=== PATIENT | male | born 1975 | race African-American/Black ===

== ENCOUNTER 2020-08-27 00:02 | Inpatient (IN) | payer OTHER ==
[2020-08-27] MEDS ORDERED: ASPIRIN 81MG TAB.CHEW ONE ×2 (00:19→09:58)
[2020-08-27] MEDS ORDERED: NITROGLYCERIN 0.4 MG SL TAB SL ONE ×2 (00:20→12:23)
[2020-08-27] MEDS ORDERED: ONDANSETRON HCL 4 MG/2 ML VIAL ONE (00:20)
[2020-08-27] MEDS ORDERED: NITROGLYCERIN 1GM/1 INCH PACKET TD ONE ×2 (00:20→12:34)
[2020-08-27] MEDS ORDERED: MORPHINE SULFATE 2 MG/ML 1ML SYG ONE ×2 (00:20→11:12)
[2020-08-27] MEDS ORDERED: ENOXAPARIN SODIUM 100 MG/1 ML SQ ONE (00:25)
[2020-08-27 00:41] LABS: INR 0.87 (0.85-1.15); PROTHROMBIN TIME 9.4 SEC (9.6-11.6)
[2020-08-27 00:42] LABS: BASOPHILS % (AUTO) 0.3 % (0.0-5.0); EOSINOPHILS % (AUTO) 0.1 % (0.0-8.0); HEMATOCRIT 36.5 % (42-54); LYMPHOCYTES % (AUTO) 24.9 % (21.0-51.0); MEAN CORPUSCULAR HEMOGLOBIN 26.3 pg (27.0-33.0); MEAN CORPUSCULAR HGB CONC 31.5 g/dL (32.0-36.0); MEAN CORPUSCULAR VOLUME 83.5 fL (79-99); PLATELET COUNT (AUTO) 351 K/uL (130-400); RED BLOOD CELL COUNT(AUTO) 4.37 MIL/uL (4.50-6.20); RED CELL DISTRIBUTION WIDTH 12.8 % (11.0-15.5); WHITE BLOOD COUNT (AUTO) 11.1 K/uL (4.8-10.8)
[2020-08-27 00:46] LABS: CREATININE 1.3 mg/dL (0.5-1.5); POTASSIUM 3.6 mmol/L (3.5-5.1)
[2020-08-27 00:51] LABS: ALBUMIN 3.5 g/dL (3.5-5.0); BILIRUBIN,TOTAL 0.1 mg/dL (0.2-1.0); TOTAL PROTEIN, SERUM 7.7 g/dL (6.0-8.3)
[2020-08-27 01:09] LABS: B-TYPE NATRIURETIC PEPTIDE 6 pg/mL (0-100)
[2020-08-27 02:29] LABS: APPEARANCE,URINE Clear (CLEAR); BILIRUBIN,URINE Negative (NEGATIVE); COLOR,URINE Yellow (YELLOW); GLUCOSE, URINE (UA) Negative (NEGATIVE); KETONES,URINE Negative (NEGATIVE); LEUKOCYTE ESTERASE ,URINE Negative (NEGATIVE); NITRATE,URINE Negative (NEGATIVE); OCCULT BLOOD,URINE Negative (NEGATIVE); PH,URINE 7.5 (5.0-8.0); PROTEIN,URINE Negative (NEGATIVE); UROBILINOGEN,URINE 0.2 mg/dL (0.2-1.0)
[2020-08-27] MEDS ORDERED: NITROGLYCERIN 0.4 MG SL TAB SL PRN ×2 (07:30→12:15)
[2020-08-27] MEDS ORDERED: GUAIFENESIN-DM 200/20 MG 10 ML PO PRN (07:30)
[2020-08-27] MEDS ORDERED: ZOLPIDEM TARTRATE 5 MG TAB PO PRN (07:30)
[2020-08-27] MEDS ORDERED: ONDANSETRON HCL 4 MG/2 ML VIAL IV PRN (07:30)
[2020-08-27] MEDS: CEFTRIAXONE SODIUM 1 GM IV SCH (07:30)
[2020-08-27] MEDS ORDERED: SODIUM CHLORIDE 0.9% 1000ML 1,000 ML IV SCH ×2 (07:30→17:00)
[2020-08-27] MEDS ORDERED: ACETAMINOPHEN 325 MG TAB PO PRN ×2 (07:30)
[2020-08-27] MEDS: ASPIRIN 81MG TAB.CHEW PO SCH (09:00)
[2020-08-27] MEDS: ENOXAPARIN SODIUM 40 MG/0.4 ML SYRINGE SQ SCH (09:00)
[2020-08-27] MEDS ORDERED: METOPROLOL TARTRATE 25 MG TAB PO SCH (09:00)
[2020-08-27] MEDS: FAMOTIDINE/PF 20 MG/2 ML VIAL IV SCH (09:00)
[2020-08-27 09:15] LABS: BASOPHILS % (AUTO) 0.3 % (0.0-5.0); EOSINOPHILS % (AUTO) 0.2 % (0.0-8.0); HEMATOCRIT 33.1 % (42-54); LYMPHOCYTES % (AUTO) 18.7 % (21.0-51.0); MEAN CORPUSCULAR HEMOGLOBIN 26.8 pg (27.0-33.0); MEAN CORPUSCULAR VOLUME 83.6 fL (79-99); MONOCYTES % (AUTO) 7.2 % (3.0-13.0); NEUTROPHILS % (AUTO) 72.1 % (40.0-77.0); PLATELET COUNT (AUTO) 328 K/uL (130-400); RED BLOOD CELL COUNT(AUTO) 3.96 MIL/uL (4.50-6.20); RED CELL DISTRIBUTION WIDTH 12.8 % (11.0-15.5); WHITE BLOOD COUNT (AUTO) 10.2 K/uL (4.8-10.8)
[2020-08-27 09:24] LABS: HEMOGLOBIN A1C 6.2 % (4.0-6.0)
[2020-08-27 09:28] LABS: ALBUMIN 3.4 g/dL (3.5-5.0); BILIRUBIN,TOTAL 0.3 mg/dL (0.2-1.0); CREATININE 1.2 mg/dL (0.5-1.5); TOTAL PROTEIN, SERUM 7.2 g/dL (6.0-8.3)
[2020-08-27 09:28] LABS: AMPHET/METH SCREEN,URINE NEGATIVE (NEGATIVE); BARBITURATE SCREEN, URINE NEGATIVE (NEGATIVE); BENZODIAZEPINES SCREEN,URINE NEGATIVE (NEGATIVE); CANNABINOID SCREEN,URINE NEGATIVE (NEGATIVE); COCAINE SCREEN,URINE NEGATIVE (NEGATIVE); OPIATE SCREEN,URINE NEGATIVE (NEGATIVE); PHENCYCLIDINE SCREEN,URINE NEGATIVE (NEGATIVE)
[2020-08-27] MEDS ORDERED: FAMOTIDINE 20MG TAB 20 MG TAB ONE (09:58)
[2020-08-27] MEDS ORDERED: SODIUM CHLORIDE 0.9% 1000ML 1,000 ML IV ONE (09:59)
[2020-08-27] MEDS ORDERED: ENOXAPARIN SODIUM 40 MG/0.4 ML SYRINGE SQ ONE (09:59)
[2020-08-27] MEDS ORDERED: CEFTRIAXONE SODIUM 1 GM ONE (09:59)
[2020-08-27] MEDS ORDERED: SODIUM CHLORIDE 0.9% 100 ML IV ONE (10:00)
[2020-08-27] MEDS: INSULIN HUMULIN R 100 UNIT/ML 3ML SQ SCH ×3 (11:30→20:46)
[2020-08-27] MEDS ORDERED: NITROGLYCERIN 1GM/1 INCH PACKET TD SCH (12:15)
[2020-08-27] MEDS ORDERED: ACETAMINOPHEN 325 MG TAB ONE (13:59)
[2020-08-27] MEDS ORDERED: BIVALIRUDIN 250 MG/VIAL IV ONE (16:19)
[2020-08-27] MEDS ORDERED: FENTANYL CITRATE PF 50 MCG/1 ML 2ML VIAL ONE (16:19)
[2020-08-27] MEDS ORDERED: HEPARIN SODIUM 1000UNIT/ML 10ML VIAL ONE (16:19)
[2020-08-27] MEDS ORDERED: LIDOCAINE HCL 2% 20ML ONE (16:19)
[2020-08-27] MEDS ORDERED: MIDAZOLAM HCL 1 MG/ML 2ML VIAL ONE (16:19)
[2020-08-27] MEDS ORDERED: NITROGLYCERIN 2 MG/VIAL VIAL IV ONE (16:19)
[2020-08-27] MEDS ORDERED: IOHEXOL-350 50ML VIAL IV ONE (16:20)
[2020-08-27] MEDS ORDERED: IOHEXOL 350 MG/ML 100ML INFUS..BTL IV ONE (16:20)
[2020-08-27 17:25] VITALS: BP 117/82
[2020-08-27] MEDS ORDERED: LORA10TA7 PO (17:57)
[2020-08-27] MEDS ORDERED: METO50TA18 PO (17:57)
[2020-08-27] MEDS ORDERED: MELA3CAP2 PO (17:57)
[2020-08-27] MEDS ORDERED: LEVE10006 PO (17:57)
[2020-08-27] MEDS ORDERED: LISI40TA4 PO (17:57)
[2020-08-27] MEDS ORDERED: GABA600T10 PO (17:57)
[2020-08-27] MEDS ORDERED: DULO30CA52 PO (17:57)
[2020-08-27] MEDS ORDERED: VITA1CAP PO (17:57)
[2020-08-27] MEDS ORDERED: SIMV40TA59 PO (17:57)
[2020-08-27] MEDS ORDERED: FLUT16H NS (17:57)
[2020-08-27] MEDS ORDERED: METF-446 PO (17:57)
--- NOTE | 2020-08-27 18:06 | NUR ---
POST PROCEDURE RECEIVED PT FROM WAREHOUSE DRIVER, IN FLAT POSITION, A&OX3, CALM COOPERATIVE AND DOES NOT APPEAR TO BE IN ANY DISTRESS NOR ANY NEURO DEFICITS PRESENT. PT DENIES PAIN, SOB, NAUSEA. RT GROIN SOFT NONTENDER WITH NO OOZING OR HEMATOMA PRESENT. DP/PT PULSES PALPABLE. CALL LIGHT WITHIN REACH, PT ON BEDREST FOR 2 HOURS, CALL LIGHT WITHIN REACH
[2020-08-27 19:11] VITALS: BP 117/68
[2020-08-27 20:11] VITALS: BP 137/84
[2020-08-27] MEDS: LEVETIRACETAM 500 MG TABLET PO SCH (20:13)
[2020-08-27] MEDS: SIMVASTATIN 20 MG TABLET PO SCH (20:20)
[2020-08-27] MEDS: METOPROLOL TARTRATE 50 MG TAB PO SCH (20:23)
[2020-08-27 21:11] VITALS: BP 111/54
[2020-08-27 22:26] VITALS: BP 135/96
[2020-08-27] MEDS: MORPHINE SULFATE 2 MG/ML 1ML SYG IV PRN (22:40)
[2020-08-27 23:22] VITALS: BP 137/85
[2020-08-28 03:56] VITALS: BP 140/85
[2020-08-28 06:18] LABS: BASOPHILS % (AUTO) 0.4 % (0.0-5.0); EOSINOPHILS % (AUTO) 0.2 % (0.0-8.0); HEMATOCRIT 32.8 % (42-54); MEAN CORPUSCULAR HEMOGLOBIN 26.3 pg (27.0-33.0); MEAN CORPUSCULAR HGB CONC 31.7 g/dL (32.0-36.0); MEAN CORPUSCULAR VOLUME 82.8 fL (79-99); MONOCYTES % (AUTO) 7.6 % (3.0-13.0); NEUTROPHILS % (AUTO) 66.8 % (40.0-77.0); PLATELET COUNT (AUTO) 303 K/uL (130-400); RED BLOOD CELL COUNT(AUTO) 3.96 MIL/uL (4.50-6.20); RED CELL DISTRIBUTION WIDTH 12.9 % (11.0-15.5); WHITE BLOOD COUNT (AUTO) 8.4 K/uL (4.8-10.8)
[2020-08-28 06:34] LABS: CREATININE 1.2 mg/dL (0.5-1.5); POTASSIUM 4.4 mmol/L (3.5-5.1)
[2020-08-28] MEDS: CEFTRIAXONE SODIUM 1 GM IV SCH (06:35)
[2020-08-28] MEDS: INSULIN HUMULIN R 100 UNIT/ML 3ML SQ SCH ×4 (07:30→20:35)
[2020-08-28 08:43] VITALS: BP 127/79
[2020-08-28] MEDS: FAMOTIDINE/PF 20 MG/2 ML VIAL IV SCH (09:14)
[2020-08-28] MEDS: ASPIRIN 81MG TAB.CHEW PO SCH (09:14)
[2020-08-28] MEDS: METOPROLOL TARTRATE 50 MG TAB PO SCH ×2 (09:14→20:37)
[2020-08-28] MEDS: LEVETIRACETAM 500 MG TABLET PO SCH (09:14)
[2020-08-28] MEDS: ENOXAPARIN SODIUM 40 MG/0.4 ML SYRINGE SQ SCH (09:15)
[2020-08-28 11:28] VITALS: BP 130/81
[2020-08-28] MEDS: MORPHINE SULFATE 2 MG/ML 1ML SYG IV PRN ×3 (11:35→23:19)
[2020-08-28] MEDS ORDERED: IOHEXOL-350 50ML VIAL IV ONE (12:53)
[2020-08-28] MEDS ORDERED: IOHEXOL-350 75 ML VIAL IV ONE (12:54)
--- NOTE | 2020-08-28 16:05 | NUR ---
MET WITH PATIENT AT BEDSIDE. LIVES WITH SPOUSE WHO DOES ALL THE DRIVING. HAS NO DME HAS TROUBLE WITH STAIRS AND HAS FALLEN DOWN HIS STAIRS IN THE HOME A FEW TIMES SECOND TO SEIZURES. HAS BEEN DISABLED SECOND TO SEIZURES ABOUT 4 YEARS, NOW NOT ABLE TO DO MUCH EXCEPT PLAYS VIDEO GAMES AND HELPS HIS SONS WITH THEIR HOME WORK. FOLLOW WITH DR. GOMEZ AT [facility], NO DC NEEDS EXPRESSED. Addendum: 08/28/20 at 1910 by TONIA SLOAN RN CM Amended: Links added.
[2020-08-28 16:30] VITALS: BP 129/75
[2020-08-28 19:00] VITALS: BP 135/78
[2020-08-28] MEDS: SIMVASTATIN 20 MG TABLET PO SCH (20:37)
[2020-08-28] MEDS ORDERED: LEVETIRACETAM 500 MG TABLET PO SCH (21:00)
[2020-08-28 23:58] VITALS: BP 129/71
[2020-08-29 04:00] VITALS: BP 124/67
[2020-08-29] MEDS: CEFTRIAXONE SODIUM 1 GM IV SCH (06:18)
[2020-08-29] MEDS: INSULIN HUMULIN R 100 UNIT/ML 3ML SQ SCH ×3 (06:22→16:30)
[2020-08-29 08:07] VITALS: BP 139/87
[2020-08-29] MEDS: FAMOTIDINE/PF 20 MG/2 ML VIAL IV SCH (08:29)
[2020-08-29] MEDS: ENOXAPARIN SODIUM 40 MG/0.4 ML SYRINGE SQ SCH (08:29)
[2020-08-29] MEDS: METOPROLOL TARTRATE 50 MG TAB PO SCH (08:30)
[2020-08-29] MEDS: ASPIRIN 81MG TAB.CHEW PO SCH (08:30)
[2020-08-29] MEDS ORDERED: LEVETIRACETAM 500 MG TABLET PO SCH (09:00)
[2020-08-29 10:55] LABS: HEMATOCRIT 34.4 % (42-54); MEAN CORPUSCULAR HEMOGLOBIN 26.3 pg (27.0-33.0); MEAN CORPUSCULAR HGB CONC 31.7 g/dL (32.0-36.0); MEAN CORPUSCULAR VOLUME 82.9 fL (79-99); RED BLOOD CELL COUNT(AUTO) 4.15 MIL/uL (4.50-6.20); RED CELL DISTRIBUTION WIDTH 13.1 % (11.0-15.5); WHITE BLOOD COUNT (AUTO) 8.7 K/uL (4.8-10.8)
[2020-08-29 11:15] LABS: CREATININE 1.2 mg/dL (0.5-1.5); POTASSIUM 3.9 mmol/L (3.5-5.1)
[2020-08-29] MEDS: MORPHINE SULFATE 2 MG/ML 1ML SYG IV PRN (11:17)
[2020-08-29 12:10] VITALS: BP 116/74
[2020-08-29 16:50] VITALS: BP 128/83
--- NOTE | 2020-08-29 18:00 | NUR ---
PT AWAKE, ALERT, AND ORIENTED. DC HOME INSTRUCTIONS GIVEN TO PT, ACKNOWLEDGED ALL INFORMATION, ALL QUESTIONS ANSWERED. REMINDED PT TO FOLLOW UP WITH PCP AND NEUROLOGIST AT [facility] AND DR Ramya MONTERO AT [facility] MADE AWARE OF ALL MEDICATION CHANGES; MADE AWARE TO RETURN TO ER OR DIAL 911 IN CASE OF EMERGENCY. PT ACKNOWLEDGED ALL INFORMATION
== END 2020-08-29 18:19 | disposition home or self-care (01) | DRG 287 ==
LOC: EDH 00:02 → EDHIP 07:16 → 4CH 17:15
PROVIDERS: ADMIT Hospitalist; ATTEND Hospitalist
PROC: 4A023N7 Measurement of Cardiac Sampling and Pressure, Left Heart, Percutaneous Approach (ICD-10-PCS; principal; 2020-08-27)
PROC: B2111ZZ Fluoroscopy of Multiple Coronary Arteries using Low Osmolar Contrast (ICD-10-PCS; 2020-08-27)
PROC: B2151ZZ Fluoroscopy of Left Heart using Low Osmolar Contrast (ICD-10-PCS; 2020-08-27)
DX: I20.0 Unstable angina (principal); I10 Essential (primary) hypertension; E11.9 Type 2 diabetes mellitus without complications; F32.9 Major depressive disorder, single episode, unspecified; F41.9 Anxiety disorder, unspecified; E78.5 Hyperlipidemia, unspecified; F43.10 Post-traumatic stress disorder, unspecified; G40.909 Epilepsy, unspecified, not intractable, without status epilepticus; E66.9 Obesity, unspecified; F40.240 Claustrophobia; Z87.891 Personal history of nicotine dependence; Z79.84 Long term (current) use of oral hypoglycemic drugs
CPT/HCPCS: 36415; 70470; 71045; 71275; 80048; 80053; 80061; 80177; 80305; 81003; 82550; 82948; 83036; 83880; 84484; 85025; 85027; 85378; 85610; 85730; 93005; 93306; 93356; 93458; 99156; 99157; C1760; C1894; G0378; J0583; J0696; J1644; J1650; J2250; J2405; J3010; J3490; J7030; Q9967

== ENCOUNTER 2020-09-07 13:14 | Emergency (ER) | payer OTHER ==
[~2020-09-07 13:14] MED LIST: DULO30CA52 PO; FLUT16H NS; GABA600T10 PO; LEVE10006 PO; LISI40TA4 PO; LORA10TA7 PO; MELA3CAP2 PO; METF-446 PO; METO50TA18 PO; SIMV40TA59 PO; VITA1CAP PO
[2020-09-07] MEDS ORDERED: ASPIRIN 325 MG TABLET ONE (13:20)
[2020-09-07 13:35] LABS: BASOPHILS % (AUTO) 0.1 % (0.0-5.0); EOSINOPHILS % (AUTO) 0.1 % (0.0-8.0); HEMATOCRIT 35.9 % (42-54); MEAN CORPUSCULAR HEMOGLOBIN 26.5 pg (27.0-33.0); MEAN CORPUSCULAR HGB CONC 31.5 g/dL (32.0-36.0); MEAN CORPUSCULAR VOLUME 84.3 fL (79-99); MONOCYTES % (AUTO) 5.9 % (3.0-13.0); NEUTROPHILS % (AUTO) 73.2 % (40.0-77.0); PLATELET COUNT (AUTO) 322 K/uL (130-400); RED BLOOD CELL COUNT(AUTO) 4.26 MIL/uL (4.50-6.20); RED CELL DISTRIBUTION WIDTH 13.5 % (11.0-15.5); WHITE BLOOD COUNT (AUTO) 9.8 K/uL (4.8-10.8)
[2020-09-07 13:48] LABS: ALBUMIN 3.3 g/dL (3.5-5.0); BILIRUBIN,TOTAL 0.2 mg/dL (0.2-1.0); CREATININE 1.3 mg/dL (0.5-1.5); POTASSIUM 4.2 mmol/L (3.5-5.1); TOTAL PROTEIN, SERUM 7.2 g/dL (6.0-8.3)
[2020-09-07 13:50] LABS: INR 0.9 (0.85-1.15); PROTHROMBIN TIME 9.8 SEC (9.6-11.6)
[2020-09-07] MEDS ORDERED: METOPROLOL TARTRATE 1 MG/ML 5ML VIAL IV ONE (14:11)
[2020-09-07 15:03] LABS: APPEARANCE,URINE Clear (CLEAR); BILIRUBIN,URINE Small (NEGATIVE); COLOR,URINE Dark Yellow (YELLOW); GLUCOSE, URINE (UA) Negative (NEGATIVE); KETONES,URINE Trace mg/dL (NEGATIVE); LEUKOCYTE ESTERASE ,URINE Negative (NEGATIVE); NITRATE,URINE Negative (NEGATIVE); OCCULT BLOOD,URINE Negative (NEGATIVE); PH,URINE 5.5 (5.0-8.0); PROTEIN,URINE Trace mg/dL (NEGATIVE)
[2020-09-07 15:13] LABS: BACTERIA,URINE Few /HPF (None Seen); COARSE GRANULAR CASTS,URINE 0-2 /LPF (None Seen); RBC,URINE 0-1 /HPF (0-1); SQUAMOUS EPITHELIAL CELL,UR Few /HPF (0-2); WBC,URINE 0-1 /HPF (0-1)
[2020-09-07] MEDS ORDERED: LIDOCAINE 5% TOPICAL PATCH TP ONE (15:22)
== END 2020-09-07 15:57 | disposition home or self-care (01) ==
LOC: EDH 13:14
DX: R07.89 Other chest pain (principal); R06.02 Shortness of breath; Z20.828 Contact with and (suspected) exposure to other viral communicable diseases; E11.9 Type 2 diabetes mellitus without complications; E78.5 Hyperlipidemia, unspecified; I10 Essential (primary) hypertension; F41.9 Anxiety disorder, unspecified; F43.10 Post-traumatic stress disorder, unspecified; Z87.891 Personal history of nicotine dependence; Z79.899 Other long term (current) drug therapy
CPT/HCPCS: 36415; 71045; 80053; 81001; 82550; 84484; 85025; 85610; 85730; 87426; 93005; 96374; 99285; J3490; U0003

== ENCOUNTER 2020-09-16 18:40 | Inpatient (IN) | payer OTHER ==
[~2020-09-16] VITALS: Ht 175.3 cm; Wt 119.3 kg
[2020-09-16] MEDS ORDERED: LIDOCAINE HCL 2% VISCOUS 15 ML UDCUP ONE (19:18)
[2020-09-16] MEDS ORDERED: ONDANSETRON HCL 4 MG/2 ML VIAL ONE (19:19)
[2020-09-16] MEDS ORDERED: FAMOTIDINE/PF 20 MG/2 ML VIAL IV ONE (19:19)
[2020-09-16] MEDS ORDERED: MAG HYDROX/AL HYDROX/SIMETH ES 30 ML SUSP UDCUP ONE (19:19)
[2020-09-16] MEDS ORDERED: KETOROLAC TROMETHAMINE 30MG/ML ONE (19:19)
[2020-09-16 19:20] LABS: BASOPHILS % (AUTO) 0.2 % (0.0-5.0); EOSINOPHILS % (AUTO) 0.8 % (0.0-8.0); LYMPHOCYTES % (AUTO) 22.2 % (21.0-51.0); MEAN CORPUSCULAR HEMOGLOBIN 26.5 pg (27.0-33.0); MEAN CORPUSCULAR HGB CONC 30.9 g/dL (32.0-36.0); MEAN CORPUSCULAR VOLUME 85.8 fL (79-99); MONOCYTES % (AUTO) 7.9 % (3.0-13.0); NEUTROPHILS % (AUTO) 67.2 % (40.0-77.0); PLATELET COUNT (AUTO) 324 K/uL (130-400); RED BLOOD CELL COUNT(AUTO) 4.08 MIL/uL (4.50-6.20); RED CELL DISTRIBUTION WIDTH 13.6 % (11.0-15.5); WHITE BLOOD COUNT (AUTO) 6.6 K/uL (4.8-10.8)
[2020-09-16 19:29] LABS: CREATININE 1.1 mg/dL (0.5-1.5); POTASSIUM 4.2 mmol/L (3.5-5.1)
[2020-09-16 19:34] LABS: ALBUMIN 3.2 g/dL (3.5-5.0); BILIRUBIN,TOTAL 0.2 mg/dL (0.2-1.0); TOTAL PROTEIN, SERUM 6.9 g/dL (6.0-8.3)
[2020-09-16 20:24] LABS: APPEARANCE,URINE Clear (CLEAR); BILIRUBIN,URINE Negative (NEGATIVE); COLOR,URINE Yellow (YELLOW); GLUCOSE, URINE (UA) Negative (NEGATIVE); KETONES,URINE Negative (NEGATIVE); LEUKOCYTE ESTERASE ,URINE Negative (NEGATIVE); NITRATE,URINE Negative (NEGATIVE); OCCULT BLOOD,URINE Negative (NEGATIVE); PROTEIN,URINE Negative (NEGATIVE)
[2020-09-16] MEDS ORDERED: HYDROMORPHONE HCL 0.5 MG/0.5 ML ML ONE ×2 (20:28→21:57)
[2020-09-16] MEDS ORDERED: IOHEXOL-350 75 ML VIAL IV ONE (21:08)
[2020-09-16] MEDS ORDERED: METOPROLOL TARTRATE 25 MG TAB ONE (23:11)
[2020-09-16] MEDS ORDERED: ATORVASTATIN CALCIUM 20 MG TABLET ONE (23:11)
[2020-09-17] MEDS ORDERED: NITROGLYCERIN 0.4 MG SL TAB SL PRN
[2020-09-17] MEDS ORDERED: GUAIFENESIN-DM 200/20 MG 10 ML PO PRN
[2020-09-17] MEDS ORDERED: MAG HYDROX/AL HYDROX/SIMETH ES 30 ML SUSP UDCUP PO PRN
[2020-09-17] MEDS ORDERED: DIPHENHYDRAMINE HCL 25 MG CAPSULE PO PRN
[2020-09-17] MEDS ORDERED: ACETAMINOPHEN 325 MG TAB PO PRN
[2020-09-17] MEDS ORDERED: ONDANSETRON HCL 4 MG/2 ML VIAL IV PRN
[2020-09-17] MEDS ORDERED: HYDRALAZINE HCL 20 MG/ML VIAL IV PRN
[2020-09-17] MEDS ORDERED: ACETAMINOPHEN-CODEINE 300/30MG TAB PO PRN
[2020-09-17] MEDS ORDERED: LACTULOSE 20 GM/30 ML UDCUP PO PRN
[2020-09-17] MEDS ORDERED: ZOLPIDEM TARTRATE 5 MG TAB PO PRN
[2020-09-17 00:48] LABS: CREATINE KINASE, TOTAL 59 U/L (21-232); MYOGLOBIN 31 ng/mL (10-92); TROPONIN I < 0.04 ng/mL (0.00-0.06)
[2020-09-17] MEDS ORDERED: ACETAMINOPHEN-CODEINE 300/30MG TAB ONE (03:02)
--- NOTE | 2020-09-17 03:20 | NUR ---
Admission note: Admitted to floor via stretcher from ER. Fully awake and responsive. Physical assessment done. ( See CPOE flow chart for full assessment) VS checked and recorded. Abdominal pain still present but tolerable at this time. "Pain never goes away" as reported by pt. Home meds at bedside and were listed. Has PIV line to LAC #20 gauge , SL - patent and intact. Hooked to Telemetry at bedside NSR. Plan of care initiated. Admission protocols done. Seizure precautionary measures done. Respiratory distress not noted. Needs attended and cared for.
[2020-09-17 04:21] VITALS: BP 145/79
[2020-09-17] MEDS ORDERED: AEC81 PO (04:26)
[2020-09-17] MEDS ORDERED: LEVE10006 PO ×2 (04:26)
[2020-09-17] MEDS ORDERED: CYCL10TA7 PO (04:26)
[2020-09-17] MEDS ORDERED: QUET200T PO (04:26)
[2020-09-17] MEDS ORDERED: GABA300C PO (04:26)
[2020-09-17] MEDS ORDERED: METO25TA6 PO (04:26)
[2020-09-17] MEDS ORDERED: MELO-108 PO (04:26)
[2020-09-17] MEDS ORDERED: LISI40TA4 PO (04:26)
[2020-09-17] MEDS ORDERED: LEVE250T2 PO (04:27)
[2020-09-17 05:12] LABS: BASOPHILS % (AUTO) 0.3 % (0.0-5.0); HEMATOCRIT 32.2 % (42-54); LYMPHOCYTES % (AUTO) 26.2 % (21.0-51.0); MEAN CORPUSCULAR HEMOGLOBIN 26.3 pg (27.0-33.0); MEAN CORPUSCULAR HGB CONC 31.1 g/dL (32.0-36.0); MEAN CORPUSCULAR VOLUME 84.7 fL (79-99); MONOCYTES % (AUTO) 9.2 % (3.0-13.0); NEUTROPHILS % (AUTO) 62.1 % (40.0-77.0); PLATELET COUNT (AUTO) 285 K/uL (130-400); RED CELL DISTRIBUTION WIDTH 13.9 % (11.0-15.5)
[2020-09-17 05:21] LABS: CREATININE 1.1 mg/dL (0.5-1.5); POTASSIUM 4.2 mmol/L (3.5-5.1)
[2020-09-17 06:44] LABS: CREATINE KINASE, TOTAL 58 U/L (21-232); MYOGLOBIN 45 ng/mL (10-92); TROPONIN I < 0.04 ng/mL (0.00-0.06)
[2020-09-17 06:52] LABS: HEMOGLOBIN A1C 6.9 % (4.0-6.0)
[2020-09-17 08:00] VITALS: BP 137/87
[2020-09-17] MEDS: PHARMACY COMMUNICATION MISC SCH ×2 (08:45→15:05)
[2020-09-17] MEDS: LEVETIRACETAM 500 MG TABLET PO SCH ×2 (09:00→21:24)
[2020-09-17] MEDS: FAMOTIDINE 20MG TAB 20 MG TAB PO SCH ×2 (09:00→21:25)
[2020-09-17] MEDS: METOPROLOL TARTRATE 25 MG TAB PO SCH ×2 (09:00→21:26)
[2020-09-17] MEDS: GABAPENTIN 300 MG CAPSULE PO SCH ×2 (09:01→21:25)
[2020-09-17] MEDS: VITAMIN B COMPLEX 1 CAPSULE PO SCH (09:01)
[2020-09-17] MEDS: ENOXAPARIN SODIUM 30 MG/0.3 ML SQ SCH (09:02)
[2020-09-17 11:00] VITALS: BP 142/87
--- NOTE | 2020-09-17 12:53 | NUR ---
NO ANSWER IN RESPONSE TO CALL TO PT'S AND SPOUSES PHONE. KNOWN TO THIS INSTRUCTIONAL DEVELOPER REVIEWED NOTES FROM LAST ADMISSION "" MET WITH PATIENT AT BEDSIDE. LIVES WITH SPOUSE WHO DOES ALL THE DRIVING. HAS NO DME HAS TROUBLE WITH STAIRS AND HAS FALLEN DOWN HIS STAIRS IN THE HOME A FEW TIMES SECOND TO SEIZURES. HAS BEEN DISABLED SECOND TO SEIZURES ABOUT 4 YEARS, NOW NOT ABLE TO DO MUCH EXCEPT PLAYS VIDEO GAMES AND HELPS HIS SONS WITH THEIR HOME WORK. FOLLOW WITH DR. GOMEZ AT [facility], NO DC NEEDS EXPRESSED."" WILL FOLLOW UP FOR ANY CHANGESTO THIS INFORMATION. Addendum: 09/17/20 at 1255 by TONIA SLOAN RN Amended: Links added.
[2020-09-17] MEDS: LISINOPRIL 40 MG TABLET PO SCH (13:03)
[2020-09-17] MEDS: ACETAMINOPHEN-CODEINE 300/30MG TAB PO PRN ×2 (13:05→21:47)
[2020-09-17 16:00] VITALS: BP 153/87
[2020-09-17 16:29] LABS: CREATINE KINASE, TOTAL 68 U/L (21-232); MYOGLOBIN 36 ng/mL (10-92); TROPONIN I < 0.04 ng/mL (0.00-0.06)
[2020-09-17] MEDS: ACETAMINOPHEN 325 MG TAB PO PRN (16:35)
[2020-09-17 20:41] VITALS: BP 146/77
[2020-09-17] MEDS: CYCLOBENZAPRINE HCL 10 MG TABLET PO SCH (21:24)
[2020-09-17] MEDS: SIMVASTATIN 20 MG TABLET PO SCH (21:25)
[2020-09-17] MEDS: LEVETIRACETAM 250 MG TABLET PO SCH (21:25)
[2020-09-17] MEDS: QUETIAPINE FUMARATE 100 MG TAB PO SCH (21:25)
[2020-09-17 23:56] VITALS: BP 130/73
[2020-09-18 04:25] VITALS: BP 140/71
[2020-09-18 05:06] LABS: BASOPHILS % (AUTO) 0.2 % (0.0-5.0); EOSINOPHILS % (AUTO) 1.1 % (0.0-8.0); HEMATOCRIT 31.8 % (42-54); LYMPHOCYTES % (AUTO) 27.4 % (21.0-51.0); MEAN CORPUSCULAR HEMOGLOBIN 27.2 pg (27.0-33.0); MEAN CORPUSCULAR HGB CONC 31.4 g/dL (32.0-36.0); MEAN CORPUSCULAR VOLUME 86.4 fL (79-99); MONOCYTES % (AUTO) 10.6 % (3.0-13.0); NEUTROPHILS % (AUTO) 59.6 % (40.0-77.0); PLATELET COUNT (AUTO) 283 K/uL (130-400); RED BLOOD CELL COUNT(AUTO) 3.68 MIL/uL (4.50-6.20); RED CELL DISTRIBUTION WIDTH 13.9 % (11.0-15.5); WHITE BLOOD COUNT (AUTO) 5.3 K/uL (4.8-10.8)
[2020-09-18 05:34] LABS: CREATININE 1.1 mg/dL (0.5-1.5); POTASSIUM 4.3 mmol/L (3.5-5.1)
[2020-09-18 08:00] VITALS: BP 129/83
[2020-09-18] MEDS: FAMOTIDINE 20MG TAB 20 MG TAB PO SCH ×2 (10:16→20:57)
[2020-09-18] MEDS: LEVETIRACETAM 500 MG TABLET PO SCH ×2 (10:16→20:58)
[2020-09-18] MEDS: ENOXAPARIN SODIUM 30 MG/0.3 ML SQ SCH (10:16)
[2020-09-18] MEDS: METOPROLOL TARTRATE 25 MG TAB PO SCH ×2 (10:16→20:58)
[2020-09-18] MEDS: VITAMIN B COMPLEX 1 CAPSULE PO SCH (10:16)
[2020-09-18] MEDS: GABAPENTIN 300 MG CAPSULE PO SCH ×2 (10:16→20:58)
[2020-09-18 12:00] VITALS: BP 172/99
[2020-09-18] MEDS: LISINOPRIL 40 MG TABLET PO SCH (12:41)
[2020-09-18] MEDS ORDERED: KETOROLAC TROMETHAMINE 15MG/ML IV PRN (12:45)
[2020-09-18] MEDS: KETOROLAC TROMETHAMINE 30MG/ML IV SCH ×2 (12:59→21:39)
[2020-09-18] MEDS ORDERED: SODIUM CHLORIDE 0.9% 1000ML 1,000 ML IV SCH (13:30)
[2020-09-18 15:08] LABS: AMPHET/METH SCREEN,URINE NEGATIVE (NEGATIVE); BARBITURATE SCREEN, URINE NEGATIVE (NEGATIVE); BENZODIAZEPINES SCREEN,URINE NEGATIVE (NEGATIVE); CANNABINOID SCREEN,URINE NEGATIVE (NEGATIVE); COCAINE SCREEN,URINE NEGATIVE (NEGATIVE); OPIATE SCREEN,URINE POSITIVE (NEGATIVE); PHENCYCLIDINE SCREEN,URINE NEGATIVE (NEGATIVE)
[2020-09-18 16:00] VITALS: BP 166/90
[2020-09-18] MEDS ORDERED: DEXTROSE 50%-WATER 50 ML DISP.SYRIN IV ONE (16:55)
[2020-09-18] MEDS ORDERED: DEXTROSE 50%-WATER 50 ML DISP.SYRIN IV PRN (17:00)
[2020-09-18] MEDS ORDERED: GLUCAGON 1MG KIT 1 MG ML IM PRN (17:00)
[2020-09-18] MEDS ORDERED: DEXTROSE 5%-LACTATED RINGERS 1,000 ML IV ONE (17:12)
--- NOTE | 2020-09-18 17:22 | NUR ---
CBG 48; PT ASYMPTOMATIC, DR WILCOX NOTIFIED FOR NEW ORDERS, D50 AND D5 WITH LACTATED RINGERS AT 45MLS/HR. TO RECHECK CBG IN 1 HOUR
[2020-09-18] MEDS: DEXTROSE 5%-LACTATED RINGERS 1,000 ML IV SCH (17:43)
[2020-09-18 20:00] VITALS: BP 161/92
[2020-09-18] MEDS: CYCLOBENZAPRINE HCL 10 MG TABLET PO SCH (20:56)
[2020-09-18] MEDS: SIMVASTATIN 20 MG TABLET PO SCH (20:56)
[2020-09-18] MEDS: LEVETIRACETAM 250 MG TABLET PO SCH (20:57)
[2020-09-18] MEDS: ACETAMINOPHEN 325 MG TAB PO PRN (20:57)
[2020-09-18] MEDS: QUETIAPINE FUMARATE 100 MG TAB PO SCH (20:58)
--- NOTE | 2020-09-18 21:00 | NUR ---
MEDS SHIFT ASSESSMENT DONE, PLEASE REFER TO CHART. DUE MEDS ADMINISTERED, TYLENOL PO GIVEN FOR CP. TOLERATED MEDS WELL. SL FOR NOW TO SHOWER. PCP IN TO ASSIST PT. Addendum: 09/18/20 at 2342 by COLIN VITAL RN RN Amended: Links added.
[2020-09-19] VITALS (11 sets, daily range): BP systolic 104–141; BP diastolic 59–80
--- NOTE | 2020-09-19 02:00 | NUR ---
ROUNDS PT RESTING WELL, FAIRLY ASLEEP. NO DISTRESS NOTED. KEPT NPO FOR PROCEDURE. CALL LIGHT WITHIN REACH. WILL MONITOR PT.
[2020-09-19] MEDS: METOPROLOL TARTRATE 25 MG TAB PO SCH (05:00)
--- NOTE | 2020-09-19 05:00 | NUR ---
MEDS AWAKENED PT FOR METOPROLOL DOSE, GIVEN WITH SIPS OF WATER, OTHERWISE KEPT NPO. COVID PCR NASAL SWAB DONE AND SPECIMEN SENT TO LAB. PT COMPLAINTS OF EPIGASTRIC AND CP. MEDICATED WITH TORADOL IV. KEPT COMFORTABLE IN BED. FOR MORE CARE AND MANAGEMENT.
[2020-09-19] MEDS: KETOROLAC TROMETHAMINE 30MG/ML IV SCH (05:09)
[2020-09-19 06:14] LABS: BASOPHILS % (AUTO) 0.2 % (0.0-5.0); EOSINOPHILS % (AUTO) 0.9 % (0.0-8.0); HEMATOCRIT 32.1 % (42-54); LYMPHOCYTES % (AUTO) 20.2 % (21.0-51.0); MEAN CORPUSCULAR HEMOGLOBIN 26.2 pg (27.0-33.0); MEAN CORPUSCULAR HGB CONC 31.5 g/dL (32.0-36.0); MEAN CORPUSCULAR VOLUME 83.2 fL (79-99); MONOCYTES % (AUTO) 9.4 % (3.0-13.0); NEUTROPHILS % (AUTO) 68.4 % (40.0-77.0); PLATELET COUNT (AUTO) 284 K/uL (130-400); RED BLOOD CELL COUNT(AUTO) 3.86 MIL/uL (4.50-6.20); RED CELL DISTRIBUTION WIDTH 13.9 % (11.0-15.5); WHITE BLOOD COUNT (AUTO) 5.9 K/uL (4.8-10.8)
[2020-09-19 06:32] LABS: CREATININE 1.1 mg/dL (0.5-1.5); POTASSIUM 4.1 mmol/L (3.5-5.1)
--- NOTE | 2020-09-19 06:47 | NUR ---
GI PT TAKEN TO GI LAB BY LINDSAY BACH AND HER TEAM FOR PROCEDURE.
[2020-09-19] MEDS ORDERED: PROPOFOL 10 MG/ML 20ML VIAL IV ONE ×2 (07:01→07:06)
[2020-09-19] MEDS ORDERED: MIDAZOLAM HCL 1 MG/ML 2ML VIAL ONE (07:02)
[2020-09-19] MEDS: DEXTROSE 5%-LACTATED RINGERS 1,000 ML IV SCH (09:44)
[2020-09-19] MEDS: FAMOTIDINE 20MG TAB 20 MG TAB PO SCH (09:56)
[2020-09-19] MEDS: LEVETIRACETAM 500 MG TABLET PO SCH (09:57)
[2020-09-19] MEDS: VITAMIN B COMPLEX 1 CAPSULE PO SCH (09:57)
[2020-09-19] MEDS: GABAPENTIN 300 MG CAPSULE PO SCH (09:57)
[2020-09-19] MEDS: ENOXAPARIN SODIUM 30 MG/0.3 ML SQ SCH (09:58)
[2020-09-19] MEDS ORDERED: PANTOPRAZOLE SODIUM 40 MG TABLET.DR PO SCH ×2 (12:00→12:30)
[2020-09-19] MEDS: LISINOPRIL 40 MG TABLET PO SCH (13:13)
--- NOTE | 2020-09-19 16:18 | NUR ---
IV REMOVED W/O DIFFICULTY OR COMPLICATION, PT AND FAMILY STATE UNDERSTANDING OF DISCHARGE INSTRUCTIONS. PT DISMISSED BY W/C IN GOOD CONDITION WITH PAIN OR RESP DIFFICULTY ACCOMPANIED BY FAMILY AND STAFF
--- NOTE | 2020-09-22 13:03 | NUR ---
Transitional Care - Post Discharge Note Spoke with patient's at number listed on file. As per spouse, at discharge she "immediately" drove to [place] to seek medical care for her . Mrs Ocasio has many grievances she wishes to discuss with the patient advocate. Number was provided for Mrs Ocasio. She states patient "is doing well now thanks to the doctors in [place]." Addendum: 09/22/20 at 1308 by IDALIA CASTILLO Amended: Links added.
== END 2020-09-19 16:15 | disposition home or self-care (01) | DRG 392 ==
LOC: EDH 18:40 → OBSVTOIN 22:45 → EDHIP 22:45 → INTOOBSV 22:45 → 3CH 09-17 03:48
PROVIDERS: ADMIT Internal Medicine; ATTEND Internal Medicine
PROC: 0DB58ZX Excision of Esophagus, Via Natural or Artificial Opening Endoscopic, Diagnostic (ICD-10-PCS; principal; 2020-09-19)
PROC: 0DB68ZX Excision of Stomach, Via Natural or Artificial Opening Endoscopic, Diagnostic (ICD-10-PCS; 2020-09-19)
DX: R10.9 Unspecified abdominal pain (principal); K31.89 Other diseases of stomach and duodenum; I10 Essential (primary) hypertension; E11.649 Type 2 diabetes mellitus with hypoglycemia without coma; E66.9 Obesity, unspecified; E78.5 Hyperlipidemia, unspecified; F43.10 Post-traumatic stress disorder, unspecified; G40.909 Epilepsy, unspecified, not intractable, without status epilepticus; F32.9 Major depressive disorder, single episode, unspecified; F41.9 Anxiety disorder, unspecified; R07.89 Other chest pain; Z20.828 Contact with and (suspected) exposure to other viral communicable diseases; Z68.38 Body mass index [BMI] 38.0-38.9, adult; Z79.899 Other long term (current) drug therapy
CPT/HCPCS: 36415; 43239; 70450; 74177; 76705; 80048; 80053; 80061; 80305; 81003; 82150; 82550; 82728; 82948; 83036; 83540; 83550; 83690; 83874; 84484; 85025; 87426; 93005; 93970; A4606; G0378; J1170; J1650; J1885; J2250; J2405; J2704; J3490; J7070; Q9967; U0003

== ENCOUNTER 2021-02-24 21:05 | Emergency (ER) | payer OTHER ==
[~2021-02-24 21:05] MED LIST changes: +AEC81 PO; +CYCL10TA7 PO; -DULO30CA52 PO; -FLUT16H NS; +GABA300C PO; -GABA600T10 PO; +LEVE250T2 PO; -LISI40TA4 PO; +LISI40TA9 PO; -LORA10TA7 PO; -MELA3CAP2 PO; -METF-446 PO; +METO25TA6 PO; -METO50TA18 PO; +QUET200T PO
[2021-02-24] MEDS ORDERED: SODIUM CHLORIDE 0.9% 500ML 500 ML IV ONE (22:36)
[2021-02-24] MEDS ORDERED: CLINDAMYCIN 900 MG/D5% WATER 50 ML IV ONE (22:36)
[2021-02-24] MEDS ORDERED: HYDROCODONE/ACETAMINOPHEN 5/325 MG TAB ONE (22:36)
[2021-02-24] MEDS ORDERED: KETOROLAC TROMETHAMINE 30MG/ML ONE (22:36)
== END 2021-02-25 00:05 | disposition home or self-care (01) ==
LOC: EDH 21:05
DX: K04.7 Periapical abscess without sinus (principal); K02.9 Dental caries, unspecified; I10 Essential (primary) hypertension; E78.5 Hyperlipidemia, unspecified; E11.9 Type 2 diabetes mellitus without complications; F41.9 Anxiety disorder, unspecified; F32.9 Major depressive disorder, single episode, unspecified; F43.10 Post-traumatic stress disorder, unspecified
CPT/HCPCS: 96365; 96375; 99284; J1885; J3490; J7040

== ENCOUNTER 2021-02-25 15:12 | Emergency (ER) | payer OTHER ==
[2021-02-25] MEDS ORDERED: ACETAMINOPHEN-CODEINE 300/30MG TAB ONE (15:57)
[2021-02-25] MEDS ORDERED: CLINDAMYCIN 600 MG/D5% WATER 50 ML IV ONE (15:57)
[2021-02-25 16:34] LABS: BASOPHILS % (AUTO) 0.1 % (0.0-5.0); EOSINOPHILS % (AUTO) 0.1 % (0.0-8.0); HEMATOCRIT 33.7 % (42-54); LYMPHOCYTES % (AUTO) 9.9 % (21.0-51.0); MEAN CORPUSCULAR HEMOGLOBIN 25.4 pg (27.0-33.0); MEAN CORPUSCULAR HGB CONC 31.2 g/dL (32.0-36.0); MEAN CORPUSCULAR VOLUME 81.4 fL (79-99); MONOCYTES % (AUTO) 6.7 % (3.0-13.0); NEUTROPHILS % (AUTO) 82.4 % (40.0-77.0); PLATELET COUNT (AUTO) 326 K/uL (130-400); RED BLOOD CELL COUNT(AUTO) 4.14 MIL/uL (4.50-6.20); RED CELL DISTRIBUTION WIDTH 13.8 % (11.0-15.5); WHITE BLOOD COUNT (AUTO) 8.8 K/uL (4.8-10.8)
[2021-02-25 16:38] LABS: CREATININE 1.3 mg/dL (0.5-1.5)
[2021-02-25 16:43] LABS: ALBUMIN 3.7 g/dL (3.5-5.0); BILIRUBIN,TOTAL 0.3 mg/dL (0.2-1.0); TOTAL PROTEIN, SERUM 7.9 g/dL (6.0-8.3)
[2021-02-25] MEDS ORDERED: IOHEXOL-350 50ML VIAL IV ONE (17:19)
== END 2021-02-25 18:21 | disposition home or self-care (01) ==
LOC: EDH 15:12
DX: L03.211 Cellulitis of face (principal); F41.9 Anxiety disorder, unspecified; E11.9 Type 2 diabetes mellitus without complications; F32.9 Major depressive disorder, single episode, unspecified; E78.5 Hyperlipidemia, unspecified; I10 Essential (primary) hypertension; Z90.49 Acquired absence of other specified parts of digestive tract; Z87.891 Personal history of nicotine dependence
CPT/HCPCS: 36415; 70487; 80053; 83605; 85025; 87040 ×2; 96365; 96366; 99285; J3490; Q9967

== ENCOUNTER 2021-12-01 09:38 | Emergency (ER) | payer OTHER ==
[~2021-12-01] VITALS: Ht 175.3 cm; Wt 113.4 kg
[~2021-12-01 09:38] MED LIST changes: +CYCL-309 PO; -CYCL10TA7 PO
[2021-12-01 10:19] LABS: BASOPHILS % (AUTO) 0.2 % (0.0-5.0); EOSINOPHILS % (AUTO) 0.6 % (0.0-8.0); HEMATOCRIT 36.8 % (42-54); LYMPHOCYTES % (AUTO) 20.4 % (21.0-51.0); MEAN CORPUSCULAR HEMOGLOBIN 24.5 pg (27.0-33.0); MEAN CORPUSCULAR HGB CONC 30.4 g/dL (32.0-36.0); MEAN CORPUSCULAR VOLUME 80.5 fL (79-99); MONOCYTES % (AUTO) 7.5 % (3.0-13.0); NEUTROPHILS % (AUTO) 70.8 % (40.0-77.0); PLATELET COUNT (AUTO) 319 K/uL (130-400); RED BLOOD CELL COUNT(AUTO) 4.57 MIL/uL (4.50-6.20); RED CELL DISTRIBUTION WIDTH 13.9 % (11.0-15.5); WHITE BLOOD COUNT (AUTO) 6.2 K/uL (4.8-10.8)
[2021-12-01 10:33] LABS: CREATININE 1.2 mg/dL (0.5-1.5); POTASSIUM 4.1 mmol/L (3.5-5.1)
[2021-12-01 10:37] LABS: ALBUMIN 3.5 g/dL (3.5-5.0); BILIRUBIN,TOTAL 0.2 mg/dL (0.2-1.0); TOTAL PROTEIN, SERUM 7.5 g/dL (6.0-8.3)
[2021-12-01] MEDS ORDERED: ACETAMINOPHEN 500 MG TABLET ONE (11:53)
[2021-12-01] MEDS ORDERED: ACETAMINOPHEN 500 MG TABLET PO ONE (12:00)
[2021-12-01 15:01] VITALS: BP 104/58
== END 2021-12-01 15:31 | disposition home or self-care (01) ==
LOC: EDH 09:38
DX: R55 Syncope and collapse (principal); E11.9 Type 2 diabetes mellitus without complications; I10 Essential (primary) hypertension; E78.00 Pure hypercholesterolemia, unspecified; G40.909 Epilepsy, unspecified, not intractable, without status epilepticus; Z79.82 Long term (current) use of aspirin; Z79.899 Other long term (current) drug therapy
CPT/HCPCS: 36415; 70450; 71045; 80053; 84484; 85025; 93005

== ENCOUNTER 2021-12-29 14:12 | Emergency (ER) | payer OTHER ==
[~2021-12-29] VITALS: Ht 175.3 cm; Wt 118.8 kg
[~2021-12-29 14:12] MED LIST changes: +CLIN-141 PO; +MELO7.5T12 PO
[2021-12-29 14:16] VITALS: BP 124/69
== END 2021-12-29 14:45 | disposition home or self-care (01) ==
LOC: EDH 14:12
DX: L03.116 Cellulitis of left lower limb (principal); E11.9 Type 2 diabetes mellitus without complications; E78.00 Pure hypercholesterolemia, unspecified; I10 Essential (primary) hypertension; Z79.1 Long term (current) use of non-steroidal anti-inflammatories (NSAID); Z79.82 Long term (current) use of aspirin; Z79.899 Other long term (current) drug therapy
CPT/HCPCS: 99281

== ENCOUNTER → 2022-03-09 | Outpatient (CLI) | payer OTHER | END | disposition home or self-care (01) | LOC: OIH 08:07 | PROVIDERS: ATTEND Internal Medicine Cardiovascular Disease | DX: I87.2 Venous insufficiency (chronic) (peripheral) (principal); R07.89 Other chest pain; R00.2 Palpitations; I10 Essential (primary) hypertension; E78.5 Hyperlipidemia, unspecified; E66.9 Obesity, unspecified; Z68.39 Body mass index [BMI] 39.0-39.9, adult | CPT/HCPCS: 93970 ==

== ENCOUNTER 2023-04-08 06:04 | Emergency (ER) | payer OTHER ==
[~2023-04-08] VITALS: Ht 172.7 cm; Wt 117.9 kg
[2023-04-08] MEDS ORDERED: MORPHINE 4 MG SYG IM ONE (08:00)
[2023-04-08 08:56] LABS: BASOPHILS % (AUTO) 0.2 % (0.0-5.0); EOSINOPHILS % (AUTO) 0.5 % (0.0-8.0); HEMATOCRIT 42.9 % (42-54); LYMPHOCYTES % (AUTO) 15.3 % (21.0-51.0); MEAN CORPUSCULAR HEMOGLOBIN 25.5 pg (27.0-33.0); MEAN CORPUSCULAR HGB CONC 31.2 g/dL (32.0-36.0); MEAN CORPUSCULAR VOLUME 81.7 fL (79-99); MONOCYTES % (AUTO) 7.8 % (3.0-13.0); NEUTROPHILS % (AUTO) 75.2 % (40.0-77.0); PLATELET COUNT (AUTO) 281 K/uL (130-400); RED BLOOD CELL COUNT(AUTO) 5.25 MIL/uL (4.50-6.20); RED CELL DISTRIBUTION WIDTH 13.4 % (11.0-15.5); WHITE BLOOD COUNT (AUTO) 8.1 K/uL (4.8-10.8)
[2023-04-08 09:14] LABS: ALBUMIN 3.5 g/dL (3.5-5.0); CREATININE 1.2 mg/dL (0.5-1.5); CRP QUANTITATIVE 16.3 mg/L (0.00-9.0); POTASSIUM 4.1 mmol/L (3.5-5.1); TOTAL PROTEIN, SERUM 7.7 g/dL (6.0-8.3)
[2023-04-08] MEDS ORDERED: CLINDAMYCIN 150 MG CAP PO ONE (10:00)
[2023-04-08] MEDS ORDERED: DEXAMETHASONE SOD PHOSPHATE 4 MG/ML 1ML VIAL IM ONE (10:00)
[2023-04-08] MEDS ORDERED: CLIN-141 PO (10:30)
[2023-04-08 11:00] VITALS: BP 134/78
== END 2023-04-08 11:21 | disposition home or self-care (01) ==
LOC: EDH 06:04
DX: L03.116 Cellulitis of left lower limb (principal); M25.562 Pain in left knee; E78.00 Pure hypercholesterolemia, unspecified; F32.A Depression, unspecified; E11.9 Type 2 diabetes mellitus without complications; I10 Essential (primary) hypertension; G40.909 Epilepsy, unspecified, not intractable, without status epilepticus; Z79.1 Long term (current) use of non-steroidal anti-inflammatories (NSAID); Z79.52 Long term (current) use of systemic steroids; Z79.82 Long term (current) use of aspirin; Z79.899 Other long term (current) drug therapy
CPT/HCPCS: 99284; 84550; 80053; 85025; 86140; 36415; 73552; 73562; 96372 ×2; J1100; J2270

== ENCOUNTER 2023-04-10 22:16 | Emergency (ER) | payer OTHER ==
[~2023-04-10] VITALS: Ht 172.7 cm; Wt 102.1 kg
[2023-04-10 23:53] LABS: BASOPHILS % (AUTO) 0.3 % (0.0-5.0); EOSINOPHILS % (AUTO) 0.3 % (0.0-8.0); HEMATOCRIT 43.8 % (42-54); LYMPHOCYTES % (AUTO) 15.3 % (21.0-51.0); MEAN CORPUSCULAR HEMOGLOBIN 25.4 pg (27.0-33.0); MEAN CORPUSCULAR HGB CONC 31.1 g/dL (32.0-36.0); MEAN CORPUSCULAR VOLUME 81.7 fL (79-99); MONOCYTES % (AUTO) 7.5 % (3.0-13.0); NEUTROPHILS % (AUTO) 75.1 % (40.0-77.0); PLATELET COUNT (AUTO) 350 K/uL (130-400); RED BLOOD CELL COUNT(AUTO) 5.36 MIL/uL (4.50-6.20); RED CELL DISTRIBUTION WIDTH 13.7 % (11.0-15.5); WHITE BLOOD COUNT (AUTO) 10.2 K/uL (4.8-10.8)
[2023-04-11 00:09] LABS: CREATININE 1.4 mg/dL (0.5-1.5); POTASSIUM 3.8 mmol/L (3.5-5.1)
[2023-04-11 00:13] LABS: ALBUMIN 3.8 g/dL (3.5-5.0); TOTAL PROTEIN, SERUM 8.1 g/dL (6.0-8.3); URIC ACID 7.5 mg/dL (2.6-7.2)
[2023-04-11 00:59] LABS: ERYTHROCYTE SEDIMENTATION RATE 53 MM/HR (0-15)
[2023-04-11] MEDS ORDERED: DEXAMETHASONE SOD PHOSPHATE 4 MG/ML 1ML VIAL IVP ONE (01:00)
[2023-04-11] MEDS ORDERED: PRED20TA3 PO (01:28)
[2023-04-11] MEDS ORDERED: INDO50CA97 PO (01:28)
[2023-04-11] MEDS ORDERED: COLC0.6T73 PO (01:28)
[2023-04-11 01:42] VITALS: BP 119/79
== END 2023-04-11 01:54 | disposition home or self-care (01) ==
LOC: EDH 22:16
DX: M1A.0621 Idiopathic chronic gout, left knee, with tophus (tophi) (principal); F41.9 Anxiety disorder, unspecified; E11.9 Type 2 diabetes mellitus without complications; E78.00 Pure hypercholesterolemia, unspecified; F31.9 Bipolar disorder, unspecified; G40.909 Epilepsy, unspecified, not intractable, without status epilepticus; I10 Essential (primary) hypertension; Z79.1 Long term (current) use of non-steroidal anti-inflammatories (NSAID); Z79.52 Long term (current) use of systemic steroids; Z79.82 Long term (current) use of aspirin; Z79.899 Other long term (current) drug therapy
CPT/HCPCS: 99284; 10160; 96374; 84550; 80053; 85025; 85651; 36415; 73564; J1100

== ENCOUNTER 2024-07-08 23:29 | Emergency (ER) | payer OTHER ==
[~2024-07-08] VITALS: Ht 172.7 cm; Wt 104.3 kg
[~2024-07-08 23:29] MED LIST changes: -AEC81 PO; +ALLO100T PO; +ARIP10TA54 PO; +ARIP5TAB51 PO; +ASPI-1005 PO; +ATOR10 PO; -CLIN-141 PO; -CYCL-309 PO; +EMPA25TA PO; +FLUT16H NS; +GABA-534 PO; -GABA300C PO; +INSU200I SQ; +INSU3INS3 SQ; -LEVE10006 PO; -LEVE250T2 PO; +LISI10TA24 PO; -LISI40TA9 PO; +LORA10TA7 PO; -MELO7.5T12 PO; +METF-446 PO; +MIRT7.5T11 PO; -QUET200T PO; +SILD20TA14 PO; -SIMV40TA59 PO; +SUMA50TA17 PO; +VITA-427 PO; -VITA1CAP PO
[2024-07-08 23:49] LABS: BASOPHILS # (AUTO) 0.02 K/uL (0.00-0.20); BASOPHILS % (AUTO) 0.2 % (0.0-5.0); EOSINOPHILS # (AUTO) 0.03 K/uL (0.00-0.70); EOSINOPHILS % (AUTO) 0.4 % (0.0-8.0); IMMATURE GRANULOCYTE ABSOLUTE 0.12 K/uL (0-1); LYMPHOCYTES # (AUTO) 1.7 K/uL (1.0-4.8); LYMPHOCYTES % (AUTO) 20.7 % (21.0-51.0); MEAN CORPUSCULAR HEMOGLOBIN 25.8 pg (27.0-33.0); MEAN CORPUSCULAR HGB CONC 31.8 g/dL (32.0-36.0); MEAN CORPUSCULAR VOLUME 81.3 fL (79-99); MONOCYTES # (AUTO) 0.5 K/uL (0.1-1.0); MONOCYTES % (AUTO) 6.4 % (3.0-13.0); NEUTROPHILS # (AUTO) 5.8 K/uL (1.8-7.7); NEUTROPHILS % (AUTO) 70.8 % (40.0-77.0); PLATELET COUNT (AUTO) 341 K/uL (130-400); WHITE BLOOD COUNT (AUTO) 8.2 K/uL (4.8-10.8)
[2024-07-08 23:56] LABS: APPEARANCE,URINE CLEAR (CLEAR); BILIRUBIN,URINE NEGATIVE (NEGATIVE); COLOR,URINE COLORLESS (YELLOW); GLUCOSE, URINE (UA) >=1000 mg/dL (NEGATIVE); KETONES,URINE NEGATIVE (NEGATIVE); LEUKOCYTE ESTERASE ,URINE NEGATIVE Leu/uL (NEGATIVE); NITRATE,URINE NEGATIVE (NEGATIVE); OCCULT BLOOD,URINE NEGATIVE (NEGATIVE); PROTEIN,URINE NEGATIVE (NEGATIVE); UROBILINOGEN,URINE 0.2 mg/dL (0.2-1.0)
[2024-07-09 00:01] LABS: ADD UA MICROSCOPIC YES
[2024-07-09 00:09] LABS: CREATININE 1.4 mg/dL (0.5-1.3); POTASSIUM 3.1 mmol/L (3.5-5.1)
[2024-07-09] MEDS: 0.9%NACL 1000ML 1,000 ML IV ONE ×2 (00:13→02:03)
[2024-07-09 00:30] VITALS: BP 163/86; PULSE 111; RESP 18; TEMP 98.7; O2SAT 99
[2024-07-09] MEDS: POTASSIUM BICARB/CIT AC 25 MEQ TABLET.EFF PO ONE (00:33)
[2024-07-09] MEDS: INSULIN humuLIN R 100 UNIT/ML 3ML IV ONE (00:34)
== END 2024-07-09 03:02 | disposition home or self-care (01) ==
LOC: EDH 23:29
DX: E11.65 Type 2 diabetes mellitus with hyperglycemia (principal); I10 Essential (primary) hypertension; E78.00 Pure hypercholesterolemia, unspecified; F32.A Depression, unspecified; F41.9 Anxiety disorder, unspecified; Z79.4 Long term (current) use of insulin; Z79.82 Long term (current) use of aspirin; Z79.899 Other long term (current) drug therapy; Z98.890 Other specified postprocedural states
CPT/HCPCS: 99283; 84484; 80048; 85025; 82948 ×2; 82010; 81001; 36415; 96374; 96361; J1815; J7030 ×2

== ENCOUNTER 2024-07-22 16:00 | Emergency (ER) | payer OTHER ==
[~2024-07-22] VITALS: Ht 172.7 cm; Wt 112.5 kg
[~2024-07-22 16:00] MED LIST changes: -ARIP10TA54 PO; +ARIP10TA86 PO
[2024-07-22 16:27] LABS: BASOPHILS # (AUTO) 0.03 K/uL (0.00-0.20); BASOPHILS % (AUTO) 0.4 % (0.0-5.0); EOSINOPHILS # (AUTO) 0.02 K/uL (0.00-0.70); EOSINOPHILS % (AUTO) 0.2 % (0.0-8.0); HEMATOCRIT 41.5 % (42-54); IMMATURE GRANULOCYTE ABSOLUTE 0.25 K/uL (0-1); LYMPHOCYTES # (AUTO) 1.3 K/uL (1.0-4.8); LYMPHOCYTES % (AUTO) 15.9 % (21.0-51.0); MEAN CORPUSCULAR HEMOGLOBIN 26.3 pg (27.0-33.0); MEAN CORPUSCULAR HGB CONC 31.1 g/dL (32.0-36.0); MEAN CORPUSCULAR VOLUME 84.7 fL (79-99); MONOCYTES # (AUTO) 0.5 K/uL (0.1-1.0); MONOCYTES % (AUTO) 5.6 % (3.0-13.0); NEUTROPHILS # (AUTO) 6.3 K/uL (1.8-7.7); NEUTROPHILS % (AUTO) 74.9 % (40.0-77.0); PLATELET COUNT (AUTO) 349 K/uL (130-400); RED CELL DISTRIBUTION WIDTH 13.2 % (11.0-15.5); WHITE BLOOD COUNT (AUTO) 8.4 K/uL (4.8-10.8)
[2024-07-22 16:42] LABS: CREATININE 1.2 mg/dL (0.5-1.3); POTASSIUM 3.4 mmol/L (3.5-5.1)
[2024-07-22 16:57] LABS: BILIRUBIN,DIRECT 0.1 mg/dL (0.0-0.3); BILIRUBIN,TOTAL 0.2 mg/dL (0.2-1.0); TOTAL PROTEIN, SERUM 7.8 g/dL (6.0-8.3)
[2024-07-22 16:58] LABS: ALBUMIN 3.5 g/dL (3.5-5.0)
[2024-07-22 16:59] LABS: APPEARANCE,URINE CLEAR (CLEAR); BILIRUBIN,URINE NEGATIVE (NEGATIVE); COLOR,URINE COLORLESS (YELLOW); GLUCOSE, URINE (UA) >=1000 mg/dL (NEGATIVE); KETONES,URINE NEGATIVE (NEGATIVE); LEUKOCYTE ESTERASE ,URINE NEGATIVE Leu/uL (NEGATIVE); NITRATE,URINE NEGATIVE (NEGATIVE); OCCULT BLOOD,URINE NEGATIVE (NEGATIVE); PROTEIN,URINE NEGATIVE (NEGATIVE); UROBILINOGEN,URINE 0.2 mg/dL (0.2-1.0)
[2024-07-22 17:01] LABS: ADD UA MICROSCOPIC YES
[2024-07-22 17:02] LABS: WBC,URINE 0-1 /HPF (0-1)
[2024-07-22] MEDS ORDERED: ONDA-243 PO (19:19)
[2024-07-22] MEDS ORDERED: FAMO-136 PO (19:19)
[2024-07-22] MEDS: ondanSETRON ODT 4MG TAB SL ONE (20:01)
[2024-07-22] MEDS: FAMOTIDINE 20MG TAB PO ONE (20:01)
[2024-07-22 20:09] VITALS: BP 160/90; PULSE 90; RESP 18; TEMP 98.3; O2SAT 99
== END 2024-07-22 20:22 | disposition home or self-care (01) ==
LOC: EDH 16:00
DX: R10.13 Epigastric pain (principal); E11.9 Type 2 diabetes mellitus without complications; E78.00 Pure hypercholesterolemia, unspecified; F32.A Depression, unspecified; F41.9 Anxiety disorder, unspecified; I10 Essential (primary) hypertension; Z79.4 Long term (current) use of insulin; Z79.82 Long term (current) use of aspirin; Z79.84 Long term (current) use of oral hypoglycemic drugs; Z79.899 Other long term (current) drug therapy
CPT/HCPCS: 36415; 71045; 74176; 80048; 80076; 81001; 83690; 84484; 85025; 93005

== ENCOUNTER 2024-07-28 16:44 | Emergency (ER) | payer OTHER ==
[~2024-07-28] VITALS: Ht 172.7 cm; Wt 113.4 kg
[~2024-07-28 16:44] MED LIST changes: +FAMO-136 PO; +ONDA-243 PO
[2024-07-28 17:15] LABS: BASOPHILS # (AUTO) 0.04 K/uL (0.00-0.20); BASOPHILS % (AUTO) 0.5 % (0.0-5.0); EOSINOPHILS # (AUTO) 0.05 K/uL (0.00-0.70); EOSINOPHILS % (AUTO) 0.6 % (0.0-8.0); HEMATOCRIT 38.7 % (42-54); IMMATURE GRANULOCYTE ABSOLUTE 0.19 K/uL (0-1); LYMPHOCYTES # (AUTO) 1.4 K/uL (1.0-4.8); LYMPHOCYTES % (AUTO) 18.3 % (21.0-51.0); MEAN CORPUSCULAR HEMOGLOBIN 26.3 pg (27.0-33.0); MEAN CORPUSCULAR HGB CONC 30.7 g/dL (32.0-36.0); MEAN CORPUSCULAR VOLUME 85.6 fL (79-99); MONOCYTES # (AUTO) 0.6 K/uL (0.1-1.0); NEUTROPHILS # (AUTO) 5.6 K/uL (1.8-7.7); NEUTROPHILS % (AUTO) 71.2 % (40.0-77.0); PLATELET COUNT (AUTO) 318 K/uL (130-400); RED BLOOD CELL COUNT(AUTO) 4.52 MIL/uL (4.50-6.20); RED CELL DISTRIBUTION WIDTH 13.3 % (11.0-15.5); WHITE BLOOD COUNT (AUTO) 7.9 K/uL (4.8-10.8)
[2024-07-28 17:24] LABS: ADD UA MICROSCOPIC YES; APPEARANCE,URINE CLEAR (CLEAR); BILIRUBIN,URINE NEGATIVE (NEGATIVE); COLOR,URINE LIGHT-YELLOW (YELLOW); GLUCOSE, URINE (UA) >=1000 mg/dL (NEGATIVE); KETONES,URINE NEGATIVE (NEGATIVE); LEUKOCYTE ESTERASE ,URINE NEGATIVE Leu/uL (NEGATIVE); NITRATE,URINE NEGATIVE (NEGATIVE); OCCULT BLOOD,URINE NEGATIVE (NEGATIVE); PROTEIN,URINE NEGATIVE (NEGATIVE); UROBILINOGEN,URINE 0.2 mg/dL (0.2-1.0)
[2024-07-28 17:25] LABS: RBC,URINE 0-1 /HPF (0-1)
[2024-07-28 17:30] LABS: CREATININE 1.3 mg/dL (0.5-1.3); MAGNESIUM 1.5 mg/dL (1.80-2.40); POTASSIUM 3.6 mmol/L (3.5-5.1)
[2024-07-28] MEDS: 0.9%NACL 1000ML 1,000 ML IV ONE (17:37)
[2024-07-28] MEDS: ondanSETRON 4MG INJ IVP ONE (17:37)
[2024-07-28] MEDS: MAGNESIUM OXIDE 400 MG TABLET PO ONE (17:58)
[2024-07-28 19:33] VITALS: BP 125/72; PULSE 95; RESP 18; TEMP 98.7; O2SAT 96
== END 2024-07-28 19:37 | disposition home or self-care (01) ==
LOC: EDBD 16:44 → EDH 16:44
DX: E11.649 Type 2 diabetes mellitus with hypoglycemia without coma (principal); D64.9 Anemia, unspecified; E83.42 Hypomagnesemia; E78.00 Pure hypercholesterolemia, unspecified; I10 Essential (primary) hypertension; F32.A Depression, unspecified; F41.9 Anxiety disorder, unspecified; Z79.4 Long term (current) use of insulin; Z79.82 Long term (current) use of aspirin; Z79.84 Long term (current) use of oral hypoglycemic drugs; Z79.899 Other long term (current) drug therapy; Z98.890 Other specified postprocedural states
CPT/HCPCS: 99285; 96374; 71045; 96361; 83735; 84484; 80048; 85025; 82948 ×2; 81001; 36415; 93005; J7030; J2405

== ENCOUNTER 2025-04-15 12:41 | Emergency (ER) | payer OTHER ==
[~2025-04-15] VITALS: Ht 172.7 cm; Wt 124.7 kg
[2025-04-15 13:09] LABS: APPEARANCE,URINE CLEAR (CLEAR); BILIRUBIN,URINE NEGATIVE (NEGATIVE); COLOR,URINE LIGHT-YELLOW (YELLOW); GLUCOSE, URINE (UA) >=1000 mg/dL (NEGATIVE); KETONES,URINE NEGATIVE (NEGATIVE); LEUKOCYTE ESTERASE ,URINE NEGATIVE Leu/uL (NEGATIVE); NITRATE,URINE NEGATIVE (NEGATIVE); OCCULT BLOOD,URINE NEGATIVE (NEGATIVE); PH,URINE 6.5 (5.0-8.0); RBC,URINE 0-1 /HPF (0-1); UROBILINOGEN,URINE 0.2 mg/dL (0.2-1.0); WBC,URINE 0-1 /HPF (0-1)
[2025-04-15 13:11] LABS: BASOPHILS # (AUTO) 0.04 K/uL (0.00-0.20); BASOPHILS % (AUTO) 0.4 % (0.0-5.0); EOSINOPHILS # (AUTO) 0.06 K/uL (0.00-0.70); EOSINOPHILS % (AUTO) 0.6 % (0.0-8.0); HEMATOCRIT 40.5 % (42-54); IMMATURE GRANULOCYTE ABSOLUTE 0.31 K/uL (0-1); LYMPHOCYTES # (AUTO) 1.8 K/uL (1.0-4.8); LYMPHOCYTES % (AUTO) 18.2 % (21.0-51.0); MEAN CORPUSCULAR HEMOGLOBIN 26.4 pg (27.0-33.0); MEAN CORPUSCULAR HGB CONC 32.8 g/dL (32.0-36.0); MEAN CORPUSCULAR VOLUME 80.4 fL (79-99); MONOCYTES # (AUTO) 0.6 K/uL (0.1-1.0); MONOCYTES % (AUTO) 6.3 % (3.0-13.0); NEUTROPHILS % (AUTO) 71.3 % (40.0-77.0); PLATELET COUNT (AUTO) 375 K/uL (130-400); RED BLOOD CELL COUNT(AUTO) 5.04 MIL/uL (4.50-6.20); RED CELL DISTRIBUTION WIDTH 13.3 % (11.0-15.5); WHITE BLOOD COUNT (AUTO) 9.8 K/uL (4.8-10.8)
[2025-04-15 13:11] LABS: PROTEIN,URINE NEGATIVE (NEGATIVE)
[2025-04-15] MEDS: 0.9%NACL 1000ML 1,000 ML IV ONE (13:16)
[2025-04-15] MEDS: ketOROlac 30MG VIAL (30MG/ML) IVP ONE (13:16)
[2025-04-15 13:19] LABS: CREATININE 1.2 mg/dL (0.5-1.3); POTASSIUM 3.9 mmol/L (3.5-5.1)
--- NOTE | 2025-04-15 13:40 | ERN ---
General Chief Complaint: Back Pain-No Injury Stated Complaint: LT LOWER BACK PAIN Time Seen by MD: 12:44 Source: patient History of Present Illness Initial Comments Patient is a 49-year-old male coming in to be evaluated for left lower back pain. Per patient this has been ongoing since yesterday. It does not remember hurting himself. He states that the pain starts in his left lower back and radiates to the left inguinal area. Allergies: Coded Allergies: No Known Drug Allergies (Verified Allergy, Unknown, 08/27/20) Home Meds Active Scripts Famotidine (Pepcid) 20 Mg Tablet, 20 MG PO DAILY for 7 Days, #7 TAB Prov:MEGA LOPEZ 07/22/24 Ondansetron (Ondansetron Odt) 4 Mg Tab.rapdis, 4 MG PO BID for 7 Days, #14 TAB Prov:MEGA LOPEZ PA 07/22/24 Insulin Lispro (Humalog Kwikpen) 200 Unit/Ml (3 Ml) Insuln.pen, 15 UNIT SQ TIDMEALS for 30 Days, #1 SYRINGE Prov:ENOCH SERVIN NP 07/08/24 Insulin Glargine,Hum.rec.anlog (Lantus Solostar) 100 Unit/Ml (3 Ml) Insuln.pen, 30 UNIT SQ DAILY for 30 Days, #1 SYRINGE Prov:ENOCH SERVIN PLASTERER SPOT 07/08/24 Reported Medications Metoprolol Tartrate (Metoprolol Tartrate) 25 Mg Tablet, 25 MG PO BID, TAB 07/06/24 Atorvastatin Calcium (LIPITOR) 20 Mg Tab, 20 MG PO HS, TAB 07/06/24 Lisinopril (Lisinopril) 10 Mg Tablet, 10 MG PO DAILY, TAB 07/06/24 Metformin HCl (Metformin HCl) 1,000 Mg Tablet, 750 MG PO BID, TAB 07/06/24 Gabapentin (Gabapentin) 400 Mg Capsule, 300 MG PO BID, CAP 07/06/24 Sumatriptan Succinate (Sumatriptan Succinate) 50 Mg Tablet, 50 MG PO AD, TAB 07/06/24 Sildenafil Citrate (Sildenafil) 20 Mg Tablet, 100 MG PO AD, TAB 07/06/24 Vitamin B Complex (Vitamin B Complex) 1 Each Tablet, 1 EACH PO DAILY, TAB 07/06/24 Loratadine (Loratadine) 10 Mg Tablet, 10 MG PO DAILY, TAB 07/06/24 Fluticasone Propionate (Fluticasone Propionate) 50 Mcg/Actuation Gordon.susp, 16 GM NS DAILY 07/06/24 Mirtazapine (Mirtazapine) 7.5 Mg Tablet, 7.5 MG PO HS, TAB 07/06/24 Aripiprazole (Aripiprazole) 5 Mg Tablet, 5 MG PO DAILY, TAB 07/06/24 Aripiprazole (Aripiprazole) 10 Mg Tablet, 10 MG PO HS, TAB 07/06/24 Empagliflozin (Jardiance) 25 Mg Tablet, 25 MG PO DAILY, TAB 07/06/24 Aspirin (ASPIRIN 81MG CHEW TAB) 81 Mg Tab.chew, 81 MG PO DAILY, TAB.CHEW 07/06/24 Allopurinol (Allopurinol) 100 Mg Tablet, 100 MG PO DAILY, TAB 07/06/24 Past Medical History Past Medical History: Anxiety, Depression, Diabetes-Type II, High Cholesterol, Hypertension, Seizure Medical History Other: HX OF PTSD Past Surgical History: Other Surgical History Other: LEFT ROTATOR CUFF REPAIR; RT AC JOINT RESECTION; VASETOMY, TESTICULAR BIOPS Family History Family History: Negative Social History Social History: Negative ROS Dictation CONSTITUTIONAL: No chills, no fever, no weakness, no diaphoresis, no malaise. HEAD/FACE: No signs of trauma. EENT: No eye pain, no blurred vision, no tearing, no double vision, no ear pain, no ear discharge, no nose pain, no nasal congestion, no throat pain, no throat swelling, no mouth pain. RESPIRATORY: No cough, no orthopnea, no SOB, no stridor, no wheezing. CARDIOVASCULAR: No chest pain, no edema, no palpitations, no syncope. GASTROINTESTINAL/ABDOMINAL: abdominal pain, no constipation, no diarrhea, no nausea, no vomiting. GENITOURINARY: No abnormal discharge, no dysuria, no frequent urination, no hematuria. No complaints of pain in the genitals. MUSCULOSKELETAL: No back pain, no gout, no joint pain, no joint swelling, no muscle pain, no muscle stiffness, no neck pain. INTEGUMENTARY: No change in color, no change in hair/nails, no dryness, no lesion, no lumps, no rash. NEUROLOGICAL/PSYCH: No anxiety, not depressed, no emotional problem, no headache, no numbness, no pre-existing deficit, no history of seizures, no tremors, no weakness. HEMATOLOGIC/LYMPHATIC: Not anemic, no history of blood clots, no apparent bleeding, no bruising, glands not swollen. All Systems Negative, Except as Noted. Physical Exam Physical Exam Dictation VITAL SIGNS: Reviewed. GENERAL APPEARANCE: Alert, oriented x3, no acute distress, obese. HEAD AND FACE: Non-traumatic. EYES: PERRL, pink conjunctivas, eyelid no trauma, anterior chamber clear. EARS: Pinnas intact and no signs of trauma or erythema. Ear canals clear and no discharge. TMs no erythema. NOSE: No discharge, no bleeding. OROPHARYNX: Mouth normal, teeth no caries, tongue pink. Pharynx clear, no erythema. Tonsils no exudates, no abscesses noted. Mucous membrane moist. NECK: Supple, non-tender, no thyromegaly, no masses, no JVD, no bruits. BREAST: Deferred. CHEST: No tenderness, no crepitus, no paradoxical movement, no retractions. LUNGS: Clear, well-ventilated, symmetric, no rales, no wheezing, no rhonchi, no stridor, good breath sounds bilaterally. HEART: Regular rate, regular rhythm, no murmur, no gallops. VASCULAR: No peripheral edema. ABDOMEN: Soft, positive bowel sounds, nondistended, no guarding, left CVA angle tenderness radiating to left inguinal area, no rebound, no masses no hepatomegaly, no splenomegaly, no Angel's sign, no hernias. RECTAL: Deferred. GENITAL: Deferred. NEUROLOGICAL: Normal speech, gross motor function intact, gross sensory function intact. MUSCULOSKELETAL: Neck nontender, full range of motion, back nontender, full range of motion. EXTREMITIES: Nontender, full range of motion. SKIN: Color pink, dry, no turgor, no rash, no lacerations, no abrasions, no contusions. LYMPHATICS: Deferred. Results Laboratory and Microbiology Lab and Micro Result Laboratory Tests Test 04/15/25 12:50 04/15/25 13:06 Urine Color LIGHT-YELLOW (YELLOW) Urine Appearance CLEAR (CLEAR) Urine pH 6.5 (5.0-8.0) Urine Specific [place] 1.029 (1.001-1.031) Urine Protein NEGATIVE mg/dL (NEGATIVE) Urine Glucose (UA) >=1000 mg/dL (NEGATIVE) H Urine Ketones NEGATIVE mg/dL (NEGATIVE) Urine Occult Blood NEGATIVE (NEGATIVE) Urine Nitrate NEGATIVE (NEGATIVE) Urine Bilirubin NEGATIVE mg/dL (NEGATIVE) Urine Urobilinogen 0.2 mg/dL (0.2-1.0) Urine Leukocyte Esterase NEGATIVE Da/uL Urine RBC 0-1 /HPF (0-1) Urine WBC 0-1 /HPF (0-1) Urine Bacteria None /HPF (None Seen) White Blood Count 9.8 K/uL (4.8-10.8) Red Blood Count 5.04 MIL/uL (4.50-6.20) Hemoglobin 13.3 g/dL (14.0-18.0) L Hematocrit 40.5 % (42-54) L Mean Corpuscular Volume 80.4 fL (79-99) Mean Corpuscular Hemoglobin 26.4 pg (27.0-33.0) L Mean Corpuscular Hemoglobin Concent 32.8 g/dL (32.0-36.0) Red Cell Distribution Width 13.3 % (11.0-15.5) Platelet Count 375 K/uL (130-400) Mean Platelet Volume 8.4 fL (7.5-10.5) Immature Granulocyte % (Auto) 3.2 % (0-1) H Neutrophils (%) (Auto) 71.3 % (40.0-77.0) Lymphocytes (%) (Auto) 18.2 % (21.0-51.0) L Monocytes (%) (Auto) 6.3 % (3.0-13.0) Eosinophils (%) (Auto) 0.6 % (0.0-8.0) Basophils (%) (Auto) 0.4 % (0.0-5.0) Neutrophils # (Auto) 7.0 K/uL (1.8-7.7) Lymphocytes # (Auto) 1.8 K/uL (1.0-4.8) Monocytes # (Auto) 0.6 K/uL (0.1-1.0) Eosinophils # (Auto) 0.06 K/uL (0.00-0.70) Basophils # (Auto) 0.04 K/uL (0.00-0.20) Absolute Immature Granulocyte (auto 0.31 K/uL (0-1) Nucleated Red Blood Cells 0.0 % (0.0-0.19) Sodium Level 136 mmol/L (136-145) Potassium Level 3.9 mmol/L (3.5-5.1) Chloride Level 98 mmol/L (101-111) L Carbon Dioxide Level 29 mmol/L (21-32) Blood Urea Nitrogen 18 mg/dL (7-18) Creatinine 1.2 mg/dL (0.5-1.3) Glomerular Filtration Rate Calc 73 mL/min (>90) Random Glucose 186 mg/dL (70-105) H Total Calcium 10.0 mg/dL (8.5-10.1) Labs Reviewed?: Yes EKG/XRAY/US/CT/MRI CT Scan Comment [place] [id number] [address] IMAGING REPORT Signed PATIENT: CYNTHIA CORDOVA MR#: [id number] : 1975 SEX: M AGE: 49 LOCATION: [facility] ORDER [id number] STATUS: REG REPORT#: [id number] SERVICE 1245 REASON: left flank pain ORDERING PHYSICIAN: FIONA HATCH MD PROCEDURE: ABD PEL WO - CT ABDOMEN/PELVIS W/O CONTRAST CT ABDOMEN/PELVIS W/O CONTRAST HISTORY: Left flank pain COMPARISON: 07/22/2000 TECHNIQUE: Multiple sequential axial images of the abdomen and pelvis were obtained from the dome of the diaphragm through symphysis pubis. Patient was not given contrast through intravenous route. Oral contrast was not given. FINDINGS: No pleural effusion is seen bilaterally. There is no evidence of parenchymal disease or pulmonary nodule of the visualized lower lungs. Degenerative changes of the thoracolumbar spine are present. The heart is not enlarged. Liver measures 20 cm. The liver, spleen, adrenal glands and pancreas are unremarkable. There is no evidence of hydronephrosis bilaterally. No evidence of renal stone is seen. Fecal material is seen in the colon. There are normal size retroperitoneal and mesenteric lymph nodes. No ascites is seen. No CT evidence of acute appendicitis is seen. Iliac vascular stents are seen. Pelvic sidewalls are symmetric bilaterally. The bladder is poorly distended. IMPRESSION: 1. No acute findings. CT was performed with one or more following dose reduction techniques: automated exposure control, adjustment of the mA and kv according to patient's size, or use of a iterative reconstruction technique. DICTATED BY: ROBBIE HENDRIX MD DATE: 04/15/251419 ELECTRONICALLY SIGNED BY: ROBBIE HENDRIX MD DATE: 04/15/251423 [facility] MDM: Differential diagnosis: Left-sided kidney stone, nephrolithiasis, Rationale: Tests considered and ordered secondary to shared decision making include: Previous outside records reviewed: Old ER visits. Risk of complication and/or morbidity or mortality of patient management: None Medications-Per medication reconciliation Need for hospitalization: Patient does not meet criteria for hospitalization. PATIENT IS A 29-YEAR-OLD GENTLEMAN COMING IN TO BE EVALUATED FOR LEFT FLANK PAIN. DUE TO LOCATION AND THE RADIATION OF THE PAIN WELL BLOOD IN THE URINE, A CT NEED TO BE PERFORMED TO RULE OUT KIDNEY STONES. CT DID NOT DISCLOSE ACUTE FINDINGS. PATIENT WILL BE DISCHARGED IN STABLE CONDITION WITH A DIAGNOSIS OF KIDNEY STONE PASSED AND ABDOMINAL MUSCLE STRAIN. ED Course Orders Procedure Category Date Status Time Cbc With Differential LAB 04/15/25 Complete 12:45 Basic Metabolic Panel LAB 04/15/25 Complete 12:45 Urinalysis LAB 04/15/25 Complete W/Microscopic 12:45 0.9%Nacl 1000ml (Ns PHA 04/15/25 Complete 1000ml) 13:00 Ketorolac PHA 04/15/25 Complete Tromethamine 30mg/Ml 13:00 Ct Abdomen/Pelvis W/O CT 04/15/25 Resulted Contrast 12:45 Current Medications Medications (Trade) Dose Ordered Sig/Soham Route PRN Reason Start Time Stop Time Status Last Admin Dose Admin Ketorolac Tromethamine (toRADol) 30 mg ONCE ONCE IVP 04/15/25 13:00 04/15/25 13:01 DC 04/15/25 13:16 Sodium Chloride 1,000 ml @ 0 mls/hr ONCE ONCE IV 04/15/25 13:00 04/15/25 13:01 DC 04/15/25 13:16 Vital Signs Date Time Temp Pulse Resp B/P (MAP) Pulse Ox O2 Delivery O2 Flow Rate FiO2 04/15/25 13:23 98.1 90 16 162/90 98 Room Air* 0 21 04/15/25 12:43 97.9 92 20 164/95 99 DX & DISP Disposition: Discharge Departure Impression: Primary Impression: Abdominal muscle strain Additional Impression: Kidney stone Condition: Stable Scripts Acetaminophen (Tylenol) 500 Mg Tab 1 TAB PO Q6HPRN PRN for pain or fever for 5 Days, #30 TAB 0 Refills Prov: FIONA HATCH MD 04/15/25 Methocarbamol (Robaxin) 750 Mg Tab 1 TAB PO BID for 5 Days, #10 TAB 0 Refills Prov: FIONA HATCH MD 04/15/25 Additional Instructions: FOLLOW-UP WITH PRIMARY CARE PROVIDER IN 1 TO 2 DAYS. TAKE MEDICATIONS DIRECTED HERE IN THE EMERGENCY ROOM. OKAY TO CONTINUE HOME MEDICATIONS UNLESS OTHERWISE DISCUSSED DURING YOUR VISIT IN THE EMERGENCY ROOM TODAY. RETURN TO YOUR NEAREST EMERGENCY ROOM IF SYMPTOMS WORSEN OR IF THERE IS NO IMPROVEMENT. CALL 911 IF YOU NEED IMMEDIATE ASSISTANCE. TAKE TYLENOL [id number] NEEDED AND IF NO CONTRAINDICATIONS ARE PRESENT. INCREASE ORAL HYDRATION. A WOUND CULTURE OR URINE CULTURE WAS ORDERED HERE IN THE EMERGENCY ROOM DEPARTMENT PLEASE FOLLOW-UP WITH PRIMARY CARE PROVIDER AND ADVISE THEM TO GET REPORTS FROM OUR FACILITY. IF YOU HAD ANY NICKI WRAP/SPLINTS THAT WERE APPLIED HERE, PLEASE DO NOT REMOVE THEM UNTIL YOU SEE YOUR PRIMARY CARE OR SPECIALTY. REFERRALS: Referrals: SINAI BANERJEE MD (PCP) Time of Disposition: 14:28 FIONA HATCH MD Apr 15, 2025 13:40
--- NOTE | 2025-04-15 14:24 | HMCIMG ---
CT ABDOMEN/PELVIS W/O CONTRAST HISTORY: Left flank pain COMPARISON: 07/22/2000 TECHNIQUE: Multiple sequential axial images of the abdomen and pelvis were obtained from the dome of the diaphragm through symphysis pubis. Patient was not given contrast through intravenous route. Oral contrast was not given. FINDINGS: No pleural effusion is seen bilaterally. There is no evidence of parenchymal disease or pulmonary nodule of the visualized lower lungs. Degenerative changes of the thoracolumbar spine are present. The heart is not enlarged. Liver measures 20 cm. The liver, spleen, adrenal glands and pancreas are unremarkable. There is no evidence of hydronephrosis bilaterally. No evidence of renal stone is seen. Fecal material is seen in the colon. There are normal size retroperitoneal and mesenteric lymph nodes. No ascites is seen. No CT evidence of acute appendicitis is seen. Iliac vascular stents are seen. Pelvic sidewalls are symmetric bilaterally. The bladder is poorly distended. IMPRESSION: 1. No acute findings. CT was performed with one or more following dose reduction techniques: automated exposure control, adjustment of the mA and kv according to patient's size, or use of a iterative reconstruction technique.
[2025-04-15 14:31] VITALS: BP 160/85; PULSE 85; RESP 16; TEMP 98.1; O2SAT 98
[2025-04-15] MEDS ORDERED: ACET-66 PO (14:31)
[2025-04-15] MEDS ORDERED: METH-662 PO (14:31)
== END 2025-04-15 14:41 | disposition home or self-care (01) ==
LOC: EDH 12:41
DX: S39.011A Strain of muscle, fascia and tendon of abdomen, initial encounter (principal); N20.0 Calculus of kidney; E11.9 Type 2 diabetes mellitus without complications; E78.00 Pure hypercholesterolemia, unspecified; F32.A Depression, unspecified; F41.9 Anxiety disorder, unspecified; I10 Essential (primary) hypertension; Z79.4 Long term (current) use of insulin; Z79.82 Long term (current) use of aspirin; Z79.84 Long term (current) use of oral hypoglycemic drugs; Z79.899 Other long term (current) drug therapy; X58.XXXA Exposure to other specified factors, initial encounter; Y93.89 Activity, other specified; Y92.89 Other specified places as the place of occurrence of the external cause; Y99.8 Other external cause status
CPT/HCPCS: 99285; 74176; 96374; 96361; 80048; 85025; 81001; 36415; J1885; J7030

== ENCOUNTER 2025-10-08 21:13 | Emergency (ER) | payer OTHER ==
[~2025-10-08] VITALS: Ht 172.7 cm; Wt 122.0 kg
[~2025-10-08 21:13] MED LIST changes: +ACET-66 PO; +METH-662 PO; -SILD20TA14 PO; +SILD20TA42 PO
[2025-10-08 21:35] LABS: IMMATURE GRANULOCYTE ABSOLUTE 0.19 K/uL (0-1); NUCLEATED RED BLOOD CELLS 0.0 % (0.0-0.19); PLATELET COUNT (AUTO) 357 K/uL (130-400); RED BLOOD CELL COUNT(AUTO) 5.05 MIL/uL (4.50-6.20); RED CELL DISTRIBUTION WIDTH 13.2 % (11.0-15.5); WHITE BLOOD COUNT (AUTO) 10.1 K/uL (4.8-10.8)
[2025-10-08 21:43] LABS: CREATININE 1.5 mg/dL (0.5-1.3); GLOMERULAR FILTR. RATE CALC 56.0 mL/min (>90); GLUCOSE,RANDOM 219.0 mg/dL (70-105); SODIUM SERUM 136.0 mmol/L (136-145); UREA NITROGEN, BLOOD 15.0 mg/dL (7-18)
[2025-10-08 21:52] LABS: CREATINE KINASE, TOTAL 130.0 U/L (21-232)
--- NOTE | 2025-10-08 23:23 | HMCIMG ---
EXAM: CR Chest, 1 view CLINICAL HISTORY: Chest pain. COMPARISON: None provided. FINDINGS: The lungs show no infiltrates or other acute findings. No pleural effusion or pneumothorax. The cardiomediastinal silhouette is within normal limits. No acute osseous abnormality. IMPRESSION: No acute cardiopulmonary process is evident. /[place]
[2025-10-08] MEDS: 0.9%NACL 1000ML 1,000 ML IV ONE (23:56)
--- NOTE | 2025-10-09 00:41 | ERN ---
General Chief Complaint: Chest Pain Stated Complaint: C/O CP WITH NAUSEA, THROAT PAIN Time Seen by MD: 21:24 Time Seen by Midlevel: 21:24 Source: patient History of Present Illness Initial Comments Patient is a 49-year-old male presenting to the emergency department for evaluation of chest pain Allergies: Coded Allergies: No Known Drug Allergies (Verified Allergy, Unknown, 08/27/20) Home Meds Active Scripts Acetaminophen (Tylenol) 500 Mg Tab, 1 TAB PO Q6HPRN PRN for pain or fever for 5 Days, #30 TAB 0 Refills Prov:FIONA HATCH MD 04/15/25 Methocarbamol (Robaxin) 750 Mg Tab, 1 TAB PO BID for 5 Days, #10 TAB 0 Refills Prov:FIONA HATCH MD 04/15/25 Famotidine (Pepcid) 20 Mg Tablet, 20 MG PO DAILY for 7 Days, #7 TAB Prov:MEGA LOPEZ [facility] 07/22/24 Ondansetron (Ondansetron Odt) 4 Mg Tab.rapdis, 4 MG PO BID for 7 Days, #14 TAB Prov:MEGA LOPEZ [facility] 07/22/24 Insulin Lispro (Humalog Kwikpen) 200 Unit/Ml (3 Ml) Insuln.pen, 15 UNIT SQ TIDMEALS for 30 Days, #1 SYRINGE Prov[facility] 07/08/24 Insulin Glargine,Hum.rec.anlog (Lantus Solostar) 100 Unit/Ml (3 Ml) Insuln.pen, 30 UNIT SQ DAILY for 30 Days, #1 SYRINGE Prov:[facility] 07/08/24 Reported Medications Metoprolol Tartrate (Metoprolol Tartrate) 25 Mg Tablet, 25 MG PO BID, TAB 07/06/24 Atorvastatin Calcium (LIPITOR) 20 Mg Tab, 20 MG PO HS, TAB 07/06/24 Lisinopril (Lisinopril) 10 Mg Tablet, 10 MG PO DAILY, TAB 07/06/24 Metformin HCl (Metformin HCl) 1,000 Mg Tablet, 750 MG PO BID, TAB 07/06/24 Gabapentin (Gabapentin) 400 Mg Capsule, 300 MG PO BID, CAP 07/06/24 Sumatriptan Succinate (Sumatriptan Succinate) 50 Mg Tablet, 50 MG PO AD, TAB 07/06/24 Sildenafil Citrate (Sildenafil) 20 Mg Tablet, 100 MG PO AD, TAB 07/06/24 Vitamin B Complex (Vitamin B Complex) 1 Each Tablet, 1 EACH PO DAILY, TAB 07/06/24 Loratadine (Loratadine) 10 Mg Tablet, 10 MG PO DAILY, TAB 07/06/24 Fluticasone Propionate (Fluticasone Propionate) 50 Mcg/Actuation [place].susp, 16 GM NS DAILY 07/06/24 Mirtazapine (Mirtazapine) 7.5 Mg Tablet, 7.5 MG PO HS, TAB 07/06/24 Aripiprazole (Aripiprazole) 5 Mg Tablet, 5 MG PO DAILY, TAB 07/06/24 Aripiprazole (Aripiprazole) 10 Mg Tablet, 10 MG PO HS, TAB 07/06/24 Empagliflozin (Jardiance) 25 Mg Tablet, 25 MG PO DAILY, TAB 07/06/24 Aspirin (ASPIRIN 81MG CHEW TAB) 81 Mg Tab.chew, 81 MG PO DAILY, TAB.CHEW 07/06/24 Allopurinol (Allopurinol) 100 Mg Tablet, 100 MG PO DAILY, TAB 07/06/24 Past Medical History Past Medical History: Anxiety, Depression, Diabetes-Type II, High Cholesterol, Hypertension, Seizure Medical History Other: HX OF PTSD Past Surgical History: Other Surgical History Other: VASECTOMY Family History Family History: Negative Social History Social History: Negative ROS Dictation CONSTITUTIONAL: Negative except for HPI HEAD/FACE: Negative except for HPI EENT: Negative except for HPI RESPIRATORY: Negative except for HPI GASTROINTESTINAL/ABDOMINAL: Negative except for HPI GENITOURINARY: Negative except for HPI MUSCULOSKELETAL: Negative except for HPI INTEGUMENTARY: Negative except for HPI NEUROLOGICAL/PSYCH: Negative except for HPI HEMATOLOGIC/LYMPHATIC: Negative except for HPI All Systems Negative, Except as noted above. 13 point review of systems assessed and all negative except for above. Physical Exam Physical Exam Dictation Vital Signs reviewed General Appearance: Alert, oriented x 3, no acute distress, well developed, nourished. Head and Face: non-traumatic. Eyes: PERRL, pink conjunctivas, eyelid no trauma, anterior chamber with arcus senilis. Ears: Pinnas intact and no signs of trauma or erythema ear canals clear and no discharge TM no erythema Nose: No discharge, no bleeding. Oropharynx: Mouth normal, tongue pink, pharynx clear,no erythema, tonsils no exudates, no abscesses noted, mucous membrane moist Neck: Supple, non-tender, no thyromegaly, no masses, no JVD, no bruits Breast:Deferred Chest:No tenderness, no crepitus, no paradoxical movement, no retractions Lungs:Clear, well-ventilated, symmetric, no rales, no wheezing, no rhonchi, no stridor, good breath sounds bilaterally Heart: Regular rate, regular rhythm, no murmur, no gallops Vascular: no peripheral edema, Abdomen: Soft, positive bowel sounds, nondistended, no guarding, nontender, no rebound, no masses no hepatomegaly, no splenomegaly, no Angel's sign, no hernias. Rectal: Deferred Genital: Deferred Neurological: Normal speech, motor function intact, sensory function intact Musculoskeletal: Neck nontender, full range of motion, back nontender, full range of motion, Extremities: nontender, full range of motion Skin: Color pink, dry, no turgor, no rash, no lacerations, no abrasions, no contusions. Lymphatic: Deferred Results Laboratory and Microbiology Lab and Micro Result Laboratory Tests Test 10/08/25 21:30 10/08/25 23:52 White Blood Count 10.1 K/uL (4.8-10.8) Red Blood Count 5.05 MIL/uL (4.50-6.20) Hemoglobin 13.0 g/dL (14.0-18.0) L Hematocrit 40.4 % (42-54) L Mean Corpuscular Volume 80.0 fL (79-99) Mean Corpuscular Hemoglobin 25.7 pg (27.0-33.0) L Mean Corpuscular Hemoglobin Concent 32.2 g/dL (32.0-36.0) Red Cell Distribution Width 13.2 % (11.0-15.5) Platelet Count 357 K/uL (130-400) Mean Platelet Volume 8.5 fL (7.5-10.5) Immature Granulocyte % (Auto) 1.9 % (0-1) H Neutrophils (%) (Auto) 65.7 % (40.0-77.0) Lymphocytes (%) (Auto) 24.0 % (21.0-51.0) Monocytes (%) (Auto) 7.3 % (3.0-13.0) Eosinophils (%) (Auto) 0.6 % (0.0-8.0) Basophils (%) (Auto) 0.5 % (0.0-5.0) Neutrophils # (Auto) 6.6 K/uL (1.8-7.7) Lymphocytes # (Auto) 2.4 K/uL (1.0-4.8) Monocytes # (Auto) 0.7 K/uL (0.1-1.0) Eosinophils # (Auto) 0.06 K/uL (0.00-0.70) Basophils # (Auto) 0.05 K/uL (0.00-0.20) Absolute Immature Granulocyte (auto 0.19 K/uL (0-1) Nucleated Red Blood Cells 0.0 % (0.0-0.19) Sodium Level 136 mmol/L (136-145) Potassium Level 3.6 mmol/L (3.5-5.1) Chloride Level 98 mmol/L (101-111) L Carbon Dioxide Level 26 mmol/L (21-32) Blood Urea Nitrogen 15 mg/dL (7-18) Creatinine 1.5 mg/dL (0.5-1.3) H Glomerular Filtration Rate Calc 56 mL/min (>90) Random Glucose 219 mg/dL (70-105) H Total Calcium 9.5 mg/dL (8.5-10.1) Magnesium Level 1.70 mg/dL (1.80-2.40) L Total Creatine Kinase 130 U/L (21-232) # Troponin I High Sensitivity 4 ng/L (4-75) 4 ng/L (4-75) B-Type Natriuretic Peptide 7 pg/mL (0-100) Labs Reviewed?: Yes MDM MDM: Differential diagnosis: ACS, electrolyte abnormality, drug abuse, dehydration There are no social concerns with this patient. Prescription drug management Prescriptions will include: None Medical management and examination interpretation discussions were had by me with other qualified healthcare professionals as indicated for the patient's care. ED Course Orders Procedure Category Date Status Time 12 Lead Ekg Tracing- EKG 10/08/25 Resulted Technical 21:24 Cbc With Differential LAB 10/08/25 Complete 21:24 Basic Metabolic Panel LAB 10/08/25 Complete 21:24 B-Type Natriuretic LAB 10/08/25 Complete Peptide 21:24 Creatine Kinase, Total LAB 10/08/25 Complete 21:24 Magnesium LAB 10/08/25 Complete 21:24 Troponin I High LAB 10/08/25 Complete Sensitivity 21:24 Chest 1vw RAD 10/08/25 Resulted 21:24 Troponin I High LAB 10/08/25 Complete Sensitivity 23:04 0.9%Nacl 1000ml (Ns PHA 10/08/25 Complete 1000ml) 23:30 Current Medications Medications (Trade) Dose Ordered Sig/Soham Route PRN Reason Start Time Stop Time Status Last Admin Dose Admin Sodium Chloride 1,000 ml @ 0 mls/hr ONCE ONCE IV 10/08/25 23:30 10/08/25 23:31 DC 10/08/25 23:56 Vital Signs Date Time Temp Pulse Resp B/P (MAP) Pulse Ox O2 Delivery O2 Flow Rate FiO2 10/09/25 00:58 98.8 95 20 142/60 98 Room Air* 0 10/08/25 21:24 98.8 120 18 152/66 99 Room Air* 0 10/08/25 21:16 98.1 123 20 165/93 98 Room Air HEART Score Response (Comments) Value History: Low suspicion (0) 0 EKG: Normal 0 Age: 45-65yrs (+1) 1 Risk Factors: 1-2 risk factors (+1) 1 Initial Troponin: Normal limit (0) 0 HEART Score Risk: Low Risk for MACE (1-3) Total 2 DX & DISP Disposition: Discharge Departure Impression: Primary Impression: Non-cardiac chest pain Additional Impression: Mild dehydration Condition: Stable Additional Instructions: You were evaluated today for chest pain. Your evaluation included an EKG, chest x-ray, and blood work, including cardiac enzyme testing (troponins). All results were normal. There were no signs of a heart attack or other life- threatening conditions at this time. Your chest pain does not appear to be caused by your heart. Many other things can cause chest discomfort Follow up with your primary care provider within the next 3-5 days for re- evaluation. You may also choose to follow up with a internet marketing coordinator if symptoms persist or if you have a history heart disease. Rest and avoid heavy physical exertion until cleared by your doctor. Although your evaluation today was normal, some heart or lung conditions can develop later. If you experience new or worsening pain, please return to the ER for re-evaluation per Referrals: SINAI BANERJEE MD (PCP) Time of Disposition: 00:41 I have reviewed the case, and I agree with, Diagnosis and Plan I performed the substantive portion of the visit. I have reviewed and pers onally made and approve the management plan that is documented in the note by myself or the EMILY. I acknowledge for responsibility for the patient's management plan. MEGA LOPEZ PAC Oct 09, 2025 00:41
[2025-10-09 00:58] VITALS: BP 142/60; PULSE 95; RESP 20; TEMP 98.8; O2SAT 98
--- NOTE | 2025-10-09 08:42 | EKG ---
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
== END 2025-10-09 00:57 | disposition home or self-care (01) ==
LOC: EDH 21:13
DX: R07.89 Other chest pain (principal); E86.0 Dehydration; E11.9 Type 2 diabetes mellitus without complications; E78.00 Pure hypercholesterolemia, unspecified; I10 Essential (primary) hypertension; F41.9 Anxiety disorder, unspecified; F32.A Depression, unspecified; Z79.4 Long term (current) use of insulin; Z79.82 Long term (current) use of aspirin; Z79.84 Long term (current) use of oral hypoglycemic drugs; Z98.890 Other specified postprocedural states
CPT/HCPCS: 99285; 96360; 71045; 82550; 83735; 84484 ×2; 80048; 83880; 85025; 36415; 93005; J7030